=== PATIENT | male | born 1980 | race Two or more races ===

== ENCOUNTER 2024-09-13 04:19 | Inpatient (IN) | payer MEDICAID, OTHER, SELFPAY ==
[2024-09-13] VITALS (10 sets, daily range): BP systolic 113–142; BP diastolic 73–88; PULSE 57–128; RESP 18–24; TEMP 98–102.8; O2SAT 94–98
[~2024-09-13] VITALS: Ht 185.4 cm; Wt 110.3 kg
--- NOTE | 2024-09-13 04:36 | ED.PDOC ---
General HPI Comments 43-year-old male came to ER due to flank pains. Patient currently being treated for UTI. Today is the last day of his Bactrim medication. Patient states he still does not feel any better. Still with fever, chills, nausea, back pains, bilateral flank pains, and upper abdominal pain. He denies any dysuria or gross hematuria Chief Complaint: Flank pain Time Seen by MD: 04:35 Reviewed notes: Nurses Notes Allergies: Coded Allergies: NO KNOWN ALLERGIES (Unverified , 09/13/24) Information Source: Patient Mode of Arrival: Ambulatory Severity: Moderate Inability to void: Mild Timing: Days Duration: Since onset Has not urinated for: Minutes Prehospital treatment: None Onset: Spontaneous Symptoms: Other (Flank pain) History of: UTI Location: Abdomen, (R) Flank, (L)Flank, Other (Back) associated signs and symptoms: Fever, Abdominal Pain, Nausea, Vomiting, Flank Pain, Back Pain Past Medical History PAST MEDICAL HISTORY: UTI'S Surgical History: Denies all surgeries Family History Family History: Reviewed,noncontributory to illness Social History Smoker: Non-Smoker Alcohol: Denies ETOH Use Drugs: Denies Drug Use Lives In: Home Constitutional: reports: fever; denies: chills, diaphoresis, fatigue, malaise, sweats, weakness, others EENTM: denies: blurred vision, double vision, ear bleeding, ear discharge, ear drainage, ear pain, ear ringing, eye pain, eye redness, hearing loss, mouth pain, mouth swelling, nasal discharge, nose bleeding, nose congestion, nose pain, photophobia, tearing, throat pain, throat swelling, voice changes, others Respiratory: denies: cough, hemoptysis, orthopnea, SOB at rest, shortness of breath, SOB with excertion, stridor, wheezing, others Cardiovascular: denies: chest pain, dizzy spells, diaphoresis, Dyspnea on exertion, edema, irregular heart beat, left arm pain, lightheadedness, palpitations, PND, syncope, others Gastrointestinal: reports: abdominal pain, nausea, vomiting; denies: abdomen distended, blood streaked bowels, constipated, diarrhea, dysphagia, difficulty swallowing, hematemesis, melena, poor appetite, poor fluid intake, rectal bleeding, rectal pain, others Genitourinary: reports: flank pain; denies: burning, dysuria, frequency, hematuria, incontinence, penile discharge, penile sore, pain, testicle pain, testicle swelling, urgency, others Neurological: denies: dizziness, fainting, headache, left sided numbness, left sided weakness, numbness, paresthesia, pre-existing deficit, right sided numbness, right sided weakness, seizure, speech problems, tingling, tremors, weakness, others Musculoskeletal: reports: back pain; denies: gout, joint pain, joint swelling, muscle pain, muscle stiffness, neck pain, others Integumetry: denies: bruises, change in color, change in hair/nails, dryness, laceration, lesions, lumps, rash, wounds, others Allergic/Immunocompromised: denies: Difficulty Healing, Frequent Infections, Hives, Itching, others Hematologic/Lymphatic: denies: anemia, blood clots, easy bleeding, easy bruising, swollen glands, others Endocrine: denies: excessive hunger, excessive sweating, excessive thirst, excessive urination, flushing, intolerance to cold, intolerance to heat, unexplained weight gain, unexplained weight loss, others Psychiatric: denies: anxiety, bipolar disorder, depression, hopeless, panic disorder, schizophrenia, sleepless, suicidal, others Physical Exam General Appearance: No Apparent Distress, Normal HEENT: Normal ENT Inspection, Pharynx Normal, TMs Normal Neck: Full Range of Motion, Non-Tender, Normal, Normal Inspection Respiratory: Chest Non-Tender, Lungs Clear, No Accessory Muscle Use, No Respiratory Distress, Normal Breath Sounds Cardiovascular: No Edema, No JVD, No Murmur, No Gallop, Normal Peripheral Pulses, Regular Rate/Rhythm Breast Exam: Deferred Gastrointestinal: No Organomegaly, Non Tender, No Pulsatile Mass, Normal Bowel Sounds, Soft Genitalia: Deferred Pelvic: Deferred Rectal: Deferred Extremities: No calf tenderness, Normal capillary refill, Normal inspection, Normal range of motion, Non-tender, No pedal edema Musculoskeletal : Apperance: Normal Neurologic: Alert, science specialist II-XII nml as Tested, No Motor Deficits, Normal Affect, Normal Mood, No Sensory Deficits Cerebellar Function: Normal Reflexes: Normal Skin: Dry, Normal Color, Warm Lymphatic: No Adenopathy Was a procedure done? Was a procedure done?: No Differential Diagnosis Kidney stone (Female): N/A Kidney stone (Male): Renal failure, Strain, Urinary obstruction, Urolithiasis, Renal infarction, Urinary tract infection Urinary Problem (Male): Plelonephritis, Urethritis, Urinary Retention, Uro lithiasis, UTI X-Ray, Labs, Meds, VS Vital Signs Date Time Temp Pulse Resp B/P (MAP) Pulse Ox O2 Delivery O2 Flow Rate FiO2 09/13/24 05:29 99.7 09/13/24 04:57 99.2 09/13/24 04:50 99.9 104 18 132/79 (96) 99 99.9 09/13/24 04:50 104 18 98 Room Air* 0 21 09/13/24 04:25 98.5 119 20 116/82 (93) 98 Lab Test 09/13/24 04:40 Range/Units White Blood Count 18.6 H 4.4-10.8 10^3/uL Red Blood Count 4.90 4.5-5.90 10^6/uL Hemoglobin 14.4 13.5-17.5 g/dL Hematocrit 42.2 41.0-53.0 % Mean Corpuscular Volume 86.1 80.0-100.0 fL Mean Corpuscular Hemoglobin 29.4 28.0-32.0 pg Mean Corpuscular Hemoglobin Concent 34.2 32.0-36.0 g/dL Red Cell Distribution Width 12.2 11.8-14.3 % Platelet Count 337 140-450 10^3/uL Mean Platelet Volume 8.0 6.9-10.8 fL Neutrophils (%) (Auto) 72.7 37.0-80.0 % Lymphocytes (%) (Auto) 14.7 10.0-50.0 % Monocytes (%) (Auto) 12.1 H 0.0-12.0 % Eosinophils (%) (Auto) 0.1 0.0-7.0 % Basophils (%) (Auto) 0.4 0.0-2.0 % Neutrophils # (Auto) 13.6 H 1.6-8.6 10 ^3/uL Lymphocytes # (Auto) 2.7 0.4-5.4 10 ^3/uL Monocytes # (Auto) 2.2 H 0-1.3 10 ^3/uL Eosinophils # (Auto) 0 0-0.8 10 ^3/uL Basophils # (Auto) 0.1 0-0.2 10 ^3/uL Nucleated Red Blood Cells 0.0 % Sodium Level 131 L 136-145 mmol/L Potassium Level 4.0 3.5-5.1 mmol/L Chloride Level 101 98-107 mmol/L Carbon Dioxide Level 21 20-31 mmol/L Anion Gap 9 5-15 Blood Urea Nitrogen 9 9-23 mg/dL Creatinine 1.23 0.700-1.30 mg/dL Glomerular Filtration Rate Calc 74 >90 mL/min BUN/Creatinine Ratio 7.3 L 10.0-20.0 Serum Glucose 308 H 74-106 mg/dL Lactic Acid Level 1.1 0.4-2.0 mmol/L Calcium Level 9.9 8.7-10.4 mg/dL Total Bilirubin 1.1 H 0.2-1.0 mg/dL Aspartate Amino Transferase (AST) 21 13-40 U/L Alanine Aminotransferase (ALT) 26 7-40 U/L Alkaline Phosphatase 82 46-116 U/L Total Protein 8.0 5.7-8.2 g/dL Albumin 4.6 3.2-4.8 g/dL Lipase 42 12-53 U/L Current Medications Medications (Trade) Dose Ordered Sig/Rosalina Route Start Time Stop Time Status Last Admin Sodium Chloride 1,000 ml @ 1,000 mls/hr Q1H ONCE IVB 09/13/24 04:45 09/13/24 05:44 DC 09/13/24 05:00 Ceftriaxone Sodium/Dextrose 50 ml @ 50 mls/hr ONCE ONCE IV 09/13/24 04:45 09/13/24 05:44 DC 09/13/24 05:00 Acetaminophen (Tylenol Tablet) 1,000 mg ONCE ONCE PO 09/13/24 04:45 09/13/24 04:46 DC 09/13/24 04:57 Exam: CT CT AB PEL WO CON-NO ORAL OR IV History: bilateral flank pain Comparison Study: None Technique: Multidetector spiral CT of the abdomen was performed from lung bases to pubic symphysis. Imaging was performed without IV contrast. Axial, coronal and sagittal multiplanar reformats were obtained from the axial data set by the technologist. Radiation Dose : 1. Abdomen/Pelvis: CTDIvol 21 mGy, DLP 1323 mGy*cm. Findings: Evaluation of solid organs is limited due to lack of intravenous contrast use. Lung Bases: No acute or significant lung base finding. Normal heart size. No pleural or pericardial effusion. Liver: Mild hepatic steatosis. Hepatomegaly. Gallbladder and Biliary Tree: Unremarkable Spleen: Unremarkable Pancreas: The pancreas is grossly normal in appearance. Adrenal Glands: Unremarkable Kidneys: Left kidney is unremarkable. Mild inflammatory changes around the right kidney. Bladder: Grossly unremarkable for degree of distention. Bowel: The stomach is grossly normal in appearance. Moderate volume colonic stool. The appendix is not visualized; however, no secondary findings of acute appendicitis identified. Ascites: Absent Lymphadenopathy: No mesenteric, retroperitoneal or periportal lymphadenopathy. Abdominal Wall and Mesentery: Unremarkable. Vasculature: The visualized abdominal aorta is normal in size and caliber. Fatoumata luation of abdominal and pelvic vessels is limited due to lack of intravenous contrast. Pelvic Organs: Unremarkable Musculoskeletal: No aggressive focal bony lesions, acute fractures or dislocation. IMPRESSION: No hydronephrosis. Mild inflammatory changes surrounding the right kidney possibly representing reactive inflammatory change related to recently passed right renal stone. Time of 1ST Reevaluation: 04:32 Reevaluation 1ST: Unchanged Time of 2ND Reevaluation: 05:48 Reevaluation 2ND: Unchanged Patient Education/Counseling: Diagnosis, Treatment Family Education/Counseling: No Family Present Departure 1 Departure Time of Disposition: 05:48 Impression: Primary Impression: UTI (urinary tract infection) Additional Impression: Pyelonephritis Disposition: ADMITTED INPATIENT Condition: Guarded Critical Care Note Critical Care Time?: No Stability Stability form required: No Heart Score Heart Score: Heart Score Response (Comments) Value History N/A 0 EKG N/A 0 Age N/A 0 Risk Factors N/A 0 Troponin N/A 0 Total 0 I personally scribed for ANTHONY FIELDS MD ([email or web address]) on 09/13/24 at 04:36. Electronically submitted by Ronaldo Alcala ([email or web address]). I personally scribed for ANTHONY FIELDS MD ([email or web address]) on 09/13/24 at 05:28. Electronically submitted by Ronaldo Alcala ([email or web address]). ANTHONY FIELDS MD Sep 13, 2024 04:36
[2024-09-13] MEDS: ACETAMINOPHEN 325 MG TAB PO ONE (04:57)
[2024-09-13] MEDS: cefTRIAXone 2GM/50ML D5W 50 ML IV ONE (05:00)
[2024-09-13] MEDS: SODIUM CHLORIDE 0.9% 1,000 ML IVB ONE (05:00)
--- NOTE | 2024-09-13 05:13 | DVH ---
Exam: CT CT AB PEL WO CON-NO ORAL OR IV History: bilateral flank pain Comparison Study: None Technique: Multidetector spiral CT of the abdomen was performed from lung bases to pubic symphysis. Imaging was performed without IV contrast. Axial, coronal and sagittal multiplanar reformats were ob tained from the axial data set by the technologist. Radiation Dose : 1. Abdomen/Pelvis: CTDIvol 21 mGy, DLP 1323 mGy*cm. Findings: Evaluation of solid organs is limited due to lack of intravenous contrast use. Lung Bases: No acute or significant lung base finding. Normal heart size. No pleural or pericardial effusion. Liver: Mild hepatic steatosis. Hepatomegaly. Gallbladder and Biliary Tree: Unremarkable Spleen: Unremarkable Pancreas: The pancreas is grossly normal in appearance. Adrenal Glands: Unremarkable Kidneys: Left kidney is unremarkable. Mild inflammatory changes around the right kidney. Bladder: Grossly unremarkable for degree of distention. Bowel: The stomach is grossly normal in appearance. Moderate volume colonic stool. The appendix is n ot visualized; however, no secondary findings of acute appendicitis identified. Ascites: Absent Lymphadenopathy: No mesenteric, retroperitoneal or periportal lymphadenopathy. Abdominal Wall and Mesentery: Unremarkable. Vasculature: The visualized abdominal aorta is normal in size and caliber. Evaluation of abdominal a nd pelvic vessels is limited due to lack of intravenous contrast. Pelvic Organs: Unremarkable Musculoskeletal: No aggressive focal bony lesions, acute fractures or dislocation. IMPRESSION: No hydronephrosis. Mild inflammatory changes surrounding the right kidney possibly representing reactive inflammatory ch shea related to recently passed right renal stone. Otherwise, no acute findings. Radiation optimization: All CT scans at this facility use at least one of these dose optimization moreno hniques: automated exposure control mA and/or kV adjustment per patient size (includes targeted exam s where dose is matched to clinical indication) or iterative reconstruction.
[2024-09-13 05:14] LABS: Basophils # (auto) 0.1 10 ^3/uL (0-0.2); Basophils % (auto) 0.4 % (0.0-2.0); Eosinophils # (auto) 0 10 ^3/uL (0-0.8); Eosinophils % (auto) 0.1 % (0.0-7.0); Hematocrit 42.2 % (41.0-53.0); Hemoglobin 14.4 g/dL (13.5-17.5); Lymphocytes # (auto) 2.7 10 ^3/uL (0.4-5.4); Lymphocytes % (auto) 14.7 % (10.0-50.0); Mean Corpuscular Hemoglobin 29.4 pg (28.0-32.0); Mean Corpuscular Hgb Conc. 34.2 g/dL (32.0-36.0); Mean Corpuscular Volume 86.1 fL (80.0-100.0); Monocytes # (auto) 2.2 10 ^3/uL (0-1.3); Monocytes % (auto) 12.1 % (0.0-12.0); Neutrophils # (auto) 13.6 10 ^3/uL (1.6-8.6); Neutrophils % (auto) 72.7 % (37.0-80.0); Platelet Count (auto) 337 10^3/uL (140-450); Red Cell Distribution Width 12.2 % (11.8-14.3); White Blood Cell 18.6 10^3/uL (4.4-10.8)
[2024-09-13 05:27] LABS: Alanine Aminotransferase 26 U/L (7-40); Albumin 4.6 g/dL (3.2-4.8); Alkaline Phosphatase 82 U/L (46-116); Anion Gap 9 (5-15); Aspartate Aminotransferase 21 U/L (13-40); BUN/Creatinine Ratio 7.3 (10.0-20.0); Bilirubin, Total 1.1 mg/dL (0.2-1.0); Blood Urea Nitrogen 9 mg/dL (9-23); Calcium 9.9 mg/dL (8.7-10.4); Carbon Dioxide 21 mmol/L (20-31); Chloride 101 mmol/L (98-107); Lipase 42 U/L (12-53)
[2024-09-13 05:33] LABS: Sodium 131 mmol/L (136-145)
[2024-09-13 05:34] LABS: Glucose 308 mg/dL (74-106)
[2024-09-13] MEDS ORDERED: ONDANSETRON HCL 4 MG/2 ML VIAL IV PRN ×2 (06:30→18:45)
[2024-09-13] MEDS ORDERED: DEXTROSE (50%) 50ML SYRG IV PRN ×2 (06:30→18:45)
[2024-09-13] MEDS ORDERED: MORPHINE SULFATE INJ 2 MG/ml SYRG IV PRN ×2 (06:30→18:45)
[2024-09-13] MEDS: ACCU-CHEK COMFORT CURVE STRIP VI SCH ×2 (07:00→21:50)
--- NOTE | 2024-09-13 07:06 | DVHHP2 ---
History of Present Illness Reason for Visit: Abdominal pain and flank pain History of Present Illness Isiah Park is a 43-year-old male with no past medical history who presents to the ED today for abdominal and flank pain x2 days. Patient reports that on Monday he came over to the urgent care at [facility] was prescribed antibiotics for a UTI had taken almost all the antibiotics except for 1 that was due for today. Patient reports that he came in to the ED because his pain got progressively worse also his noticed that there were specks of blood in his urine that started yesterday. Patient also reports that 05/28 that was pressure- like and constant. Patient reports that he developed fever, chills, nausea, back pain, flank pain, and abdominal pain. Patient states that the alleviating factors are rest and fluids. Patient denies any chest pain, shortness of breath, lightheadedness, headache, dizziness, vomiting, and diarrhea. Patient also reports that he has no medical history, no surgical history, patient denies illicit drug use, and states he smokes half a pack of cigarettes per day and drinks beers occasionally. Past Surgical History: None Family History: DM, Other (Mom end-stage renal disease and renal transplant single) Smoke: <1 pack per day ALCOHOL: occassional Drugs: None Lives: with Family Domestic Violence: Neg Review of Systems Constitutional: Yes: Fever, Chills; No: Sweats, Weakness, Malaise, Other Eyes: No: Pain, Vision change, Conjunctivae inflammation, Eyelid inflammation, Other, Redness ENT: No: Ear pain, Ear discharge, Nose pain, Nose discharge, Nose congestion, Mouth pain, Mouth swelling, Throat pain, Throat swelling, Other Respiratory: No: Cough, Dry, Shortness of breath, SOB with excertion, Wheezing, Hemoptysis, Pleuritic Pain, Sputum, Wheezing, Other Cardiovascular: No: Chest Pain, Palpitations, Orthopnea, Paroxysmal Noc. Dyspnea, Edema, Lt Headedness, Other Gastrointestinal: Nausea, Abdominal Pain; No: Vomiting, Diarrhea, Constipation, Melena, Hematochezia, Other Genitourinary: No Dysuria, No Frequency, No Incontinence; Hematuria; No Retention, No Other Musculoskeletal: other (Flank pain), back pain; No: neck pain, shoulder pain, arm pain, hand pain, leg pain, foot pain Skin: No: Rash, Lesions, Jaundice, Bruising, Other Neurological: No: Weakness, Numbness, Incoordination, Change in speech, Confusion, Seizures, Other Allergies: Coded Allergies: NO KNOWN ALLERGIES (Unverified , 09/13/24) Exam Vital Signs Vital Signs Date Time Temp Pulse Resp B/P (MAP) Pulse Ox O2 Delivery O2 Flow Rate FiO2 09/13/24 06:34 Room Air* 0 21 09/13/24 06:31 98.9 106 22 122/81 (95) 97 98.9 General Appearance: Alert, Oriented X3, Cooperative, No acute distress HEENT: Atraumatic, PERRLA, EOMI, Mucous membr. moist/pink Respiratory: Clear to auscultation, Normal air movement Cardiovascular: Normal S1, Normal S2, No murmurs Abdominal: Soft, No hepatospenomegaly, No masses Extremities: No clubbing, No cyanosis, No edema, Normal pulses, No tenderness/swelling Skin: No rashes, No breakdown, No significant lesion Neuro: Normal gait, Normal speech, Strength at 5/5 X4 ext, Normal tone, Sensation intact Psych/Mental Status: Mental status NL, Mood NL Labs/Xrays Labs Test 09/13/24 04:40 Range/Units White Blood Count 18.6 H 4.4-10.8 10^3/uL Red Blood Count 4.90 4.5-5.90 10^6/uL Hemoglobin 14.4 13.5-17.5 g/dL Hematocrit 42.2 41.0-53.0 % Mean Corpuscular Volume 86.1 80.0-100.0 fL Mean Corpuscular Hemoglobin 29.4 28.0-32.0 pg Mean Corpuscular Hemoglobin Concent 34.2 32.0-36.0 g/dL Red Cell Distribution Width 12.2 11.8-14.3 % Platelet Count 337 140-450 10^3/uL Mean Platelet Volume 8.0 6.9-10.8 fL Neutrophils (%) (Auto) 72.7 37.0-80.0 % Lymphocytes (%) (Auto) 14.7 10.0-50.0 % Monocytes (%) (Auto) 12.1 H 0.0-12.0 % Eosinophils (%) (Auto) 0.1 0.0-7.0 % Basophils (%) (Auto) 0.4 0.0-2.0 % Neutrophils # (Auto) 13.6 H 1.6-8.6 10 ^3/uL Lymphocytes # (Auto) 2.7 0.4-5.4 10 ^3/uL Monocytes # (Auto) 2.2 H 0-1.3 10 ^3/uL Eosinophils # (Auto) 0 0-0.8 10 ^3/uL Basophils # (Auto) 0.1 0-0.2 10 ^3/uL Nucleated Red Blood Cells 0.0 % Sodium Level 131 L 136-145 mmol/L Potassium Level 4.0 3.5-5.1 mmol/L Chloride Level 101 98-107 mmol/L Carbon Dioxide Level 21 20-31 mmol/L Anion Gap 9 5-15 Blood Urea Nitrogen 9 9-23 mg/dL Creatinine 1.23 0.700-1.30 mg/dL Glomerular Filtration Rate Calc 74 >90 mL/min BUN/Creatinine Ratio 7.3 L 10.0-20.0 Serum Glucose 308 H 74-106 mg/dL Lactic Acid Level 1.1 0.4-2.0 mmol/L Calcium Level 9.9 8.7-10.4 mg/dL Total Bilirubin 1.1 H 0.2-1.0 mg/dL Aspartate Amino Transferase (AST) 21 13-40 U/L Alanine Aminotransferase (ALT) 26 7-40 U/L Alkaline Phosphatase 82 46-116 U/L Total Protein 8.0 5.7-8.2 g/dL Albumin 4.6 3.2-4.8 g/dL Lipase 42 12-53 U/L Exam: CT CT AB PEL WO CON-NO ORAL OR IV History: bilateral flank pain Comparison Study: None Technique: Multidetector spiral CT of the abdomen was performed from lung bases to pubic symphysis. Imaging was performed without IV contrast. Axial, coronal and sagittal multiplanar reformats were obtained from the axial data set by the technologist. Radiation Dose : 1. Abdomen/Pelvis: CTDIvol 21 mGy, DLP 1323 mGy*cm. Findings: Evaluation of solid organs is limited due to lack of intravenous contrast use. Lung Bases: No acute or significant lung base finding. Normal heart size. No pleural or pericardial effusion. Liver: Mild hepatic steatosis. Hepatomegaly. Gallbladder and Biliary Tree: Unremarkable Spleen: Unremarkable Pancreas: The pancreas is grossly normal in appearance. Adrenal Glands: Unremarkable Kidneys: Left kidney is unremarkable. Mild inflammatory changes around the right kidney. Bladder: Grossly unremarkable for degree of distention. Bowel: The stomach is grossly normal in appearance. Moderate volume colonic stool. The appendix is not visualized; however, no secondary findings of acute appendicitis identified. Ascites: Absent Lymphadenopathy: No mesenteric, retroperitoneal or periportal lymphadenopathy. Abdominal Wall and Mesentery: Unremarkable. Vasculature: The visualized abdominal aorta is normal in size and caliber. Evaluation of abdominal and pelvic vessels is limited due to lack of intravenous contrast. Pelvic Organs: Unremarkable Musculoskeletal: No aggressive focal bony lesions, acute fractures or dislo cation. IMPRESSION: No hydronephrosis. Mild inflammatory changes surrounding the right kidney possibly representing reactive inflammatory change related to recently passed right renal stone. Otherwise, no acute findings. Assessment/Plan Assessment/Plan Assessment/Plan: Intractable flank pain likely secondary to acute pyelonephritis Leukocytosis likely secondary to acute pyelonephritis Hyponatremia MILLIE on CKD ct a/p noted labs pain management antiemetics ua am labs Lactic acid Blood cultures Lipase IV antibiotics Hyperglycemia Hemoglobin A1c ISS and Accu-Cheks FEN/PPX diet IVf DVT prophylaxis not indicated patient ambulating PUD prophylaxis not indicated no history of GERD or GI bleed Admit to med surg Patient states he doesn't take any home medications Discussed plan of care with patient, and nurse Plan discussed with: Patient, Spouse My Orders Orders - ALVAREZ GIL 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 Procedure Category Date Status Time Ceftriaxone Ivpb PHA 09/13/24 Verified Rocephin 09:00 Hemoglobin A1c LAB 09/13/24 Verified 06:30 Glucose Blood PHA 09/13/24 Verified (Accu-Chek Comfort 07:00 Mild Sliding Scale PHA 09/13/24 Verified 07:00 Dextrose 50% Syringe PHA 09/13/24 Verified 06:30 Admit ADMIT 09/13/24 Verified 06:30 Allergies SEKOU 09/13/24 Verified 06:30 Code Status CODE 09/13/24 Verified 06:30 Renal DIET 09/13/24 Verified Standard(2gna,3gk,Lopho) Breakfast 0.9% Ns 1000 Ml PHA 09/13/24 Verified 06:30 Hydrocodone-Acet PHA 09/13/24 Verified 5/325mg Tab ([place] 06:30 Ondansetron Hcl PHA 09/13/24 Verified (Zofran) 06:30 Complete Blood Count LAB 09/14/24 Verified 04:00 Comprehensive LAB 09/14/24 Verified Metabolic Panel 04:00 Acetaminophen Tablet PHA 09/13/24 Verified (Tylenol Tablet) 06:30 Morphine Sulfate PHA 09/13/24 Verified Injection 06:30 Date of Service: Sep 13, 2024 Billing Provider: ALVAREZ GIL Common Visit Codes: 76902-[id number] INP/OBS CARE (HIGH) ALVAREZ GIL Sep 13, 2024 07:06
[2024-09-13] MEDS: SODIUM CHLORIDE 0.9% 1,000 ML IV SCH ×2 (07:14→19:02)
[2024-09-13] MEDS: InsuLIN REG 1unit/0.01ml Soln (100units/ml) SC SCH ×2 (07:26→21:49)
[2024-09-13 09:56] LABS: Urine Bacteria FEW /hpf (None Seen); Urine Blood TRACE /uL (Negative); Urine Clarity Ex.Turbid (Clear); Urine Color DARK YELLOW (Yellow); Urine Mucus FEW (None Seen); Urine Protein, UAD 1+ (Negative); Urine Squamous Epithelial Cell None Seen /hpf (<5); Urine Urobilinogen Normal (Negative); Urine WBC 1158 /hpf (0 - 3); Urine WBC Clumps PRESENT /hpf (None Seen); Urine pH 5.5 (5.0-9.0)
[2024-09-13] MEDS: ACETAMINOPHEN 325 MG TAB PO PRN (12:24)
[2024-09-13] MEDS: HYDROcodone-ACET 5/325MG TAB PO PRN ×2 (16:24→20:44)
[2024-09-13] MEDS: metFORMIN HYDROCHLORIDE 500 MG TAB PO SCH (16:25)
[2024-09-13] MEDS ORDERED: ALBUTEROL SULF 2.5 MG/0.5ML(0.5%) NEB SOLN NEB PRN (18:45)
[2024-09-13] MEDS ORDERED: IPRATROPIUM BROM 0.5 MG/2.5ML INH SOL NEB PRN (18:45)
--- NOTE | 2024-09-13 18:47 | DVHPN2 ---
Subjective Patient reports having worsening fever, back pain, elevated heart rate. Patient also reports having epigastric pain with radiation to his back. Reviewed: Care Plan, H&P, Labs, Medications Changes from previous H/P or p: No Changes General: Per HPI Eyes: No Pain, No Vision change, No Conjunctivae inflammation, No Eyelid inflammation, No Other, No Redness ENT: No Ear pain, No Ear discharge, No Nose pain, No Nose discharge, No Nose congestion, No Mouth pain, No Mouth swelling, No Throat pain, No Throat swelling, No Other Cardiovascular: No Chest Pain, No Palpitations, No Orthopnea, No Paroxysmal Noc. Dyspnea, No Edema, No Lt Headedness, No Other Respiratory: No Cough, No Dry, No Shortness of breath, No SOB with excertion, No Wheezing, No Hemoptysis, No Pleuritic Pain, No Sputum, No Other Gastrointestinal: Nausea; No Vomiting; Abdominal Pain; No Diarrhea, No Constipation, No Melena, No Hematochezia, No Other Genitourinary: No Dysuria, No Frequency, No Incontinence; Hematuria; No Retention, No Other Musculoskeletal: other (Flank pain); No neck pain, No shoulder pain, No arm pain; back pain; No hand pain, No leg pain, No foot pain Skin: No Rash, No Lesions, No Jaundice, No Bruising, No Other Objective Vitals Vital Signs Date Time Temp Pulse Resp B/P (MAP) Pulse Ox O2 Delivery O2 Flow Rate FiO2 09/13/24 17:01 102.8 114 18 113/85 (94) 97 102.8 09/13/24 11:29 Room Air* 0 21 Intake/Output Intake and Output 09/13/24 07:00 Intake Total 1050 ml Balance 1050 ml IV Total 1050 ml General Appearance: Alert, Oriented X3, Cooperative, moderate distress HEENT: Atraumatic, PERRLA Lungs: Clear to auscultation, Normal air movement Cardiovascular: Normal S1, Normal S2 Abdomen: Normal bowel sounds, Soft, No tenderness Musculoskeletal: Normal sensory function, Normal motor function Neuro: Normal gait, Normal speech Psych/Mental Status: Mental status NL, Mood NL Medications Current Medications Medications Dose Ordered Sig/Rosalina Route Start Time Stop Time Status Last Admin Dose Admin Ceftriaxone Sodium 50 ml @ 100 mls/hr DAILY@0500 IV 09/14/24 05:00 Diagnostic Test (Pha) 1 strip ACHS 09/13/24 07:00 09/13/24 09:44 1 STRIP Insulin Human Regular ACHS SC 09/13/24 07:00 09/13/24 09:44 4 UNITS Dextrose 50 ml UD PRN IV 09/13/24 06:30 Sodium Chloride 1,000 ml @ 70 mls/hr [id number] IV 09/13/24 06:30 09/13/24 07:14 70 MLS/HR Acetaminophen/ Hydrocodone Bitart 1 tab Q4HP PRN PO 09/13/24 06:30 09/13/24 16:24 1 TAB Ondansetron HCl 4 mg Q4HP PRN IV 09/13/24 06:30 Acetaminophen 650 mg Q6HP PRN PO 09/13/24 06:30 09/13/24 12:24 650 MG Morphine Sulfate 2 mg Q4HPRN PRN IV 09/13/24 06:30 Metformin HCl 500 mg BIDWM PO 09/13/24 18:00 09/13/24 16:25 500 MG Laboratory Results Laboratory Tests 09/13/24 04:40 Chemistry Test 09/13/24 04:40 Albumin 4.6 g/dL (3.2-4.8) Calcium Level 9.9 mg/dL (8.7-10.4) Total Protein 8.0 g/dL (5.7-8.2) Lipid panel Test 09/13/24 04:40 Lipase 42 U/L (12-53) LFT Test 09/13/24 04:40 Alanine Aminotransferase (ALT) 26 U/L (7-40) Alkaline Phosphatase 82 U/L (46-116) Aspartate Amino Transferase (AST) 21 U/L (13-40) Total Bilirubin 1.1 mg/dL (0.2-1.0) H HgA1c, TSH Test 09/13/24 04:40 Hemoglobin A1c 10.0 % A1C (<5.7) H Urinalysis Test 09/13/24 04:29 Urine Color Dark yellow (Yellow) Urine Clarity Ex.turbid (Clear) Urine pH 5.5 (5.0-9.0) Urine Specific [place] 1.020 (1.001-1.035) Urine Protein 1+ (Negative) H Urine Ketones Trace (Negative) Urine Blood Trace /uL (Negative) H Urine Nitrite 1+ (Negative) H Urine Bilirubin Negative (Negative) Urine Urobilinogen Normal mg/dL (Negative) Urine Leukocyte Esterase 3+ /uL (Negative) Urine RBC 5 /hpf (0 - 3) Urine WBC 1158 /hpf (0 - 3) Urine WBC Clumps Present /hpf (None Seen) Urine Squamous Epithelial Cells None seen /hpf (<5) Urine Bacteria Few /hpf (None Seen) H Urine Mucus Few (None Seen) Urine Glucose 4+ mg/dL (Normal) H Labs and/or images reviewed: Labs reviewed by me, Image(s) reviewed by me Assessment/Plan Assessment/Plan Impression: -sepsis -complicated cystitis -diabetes mellitus -obesity -rule out influenza, COVID-19 -rule out cholelithiasis/cholecystitis Plan: -patient became severely febrile and tachycardic for which critical care consultation/assessment was placed. I myself, spoke with the patient regarding his acute symptoms. Patient reports that he feels more febrile, with acute epigastric pain that radiates to his back. Patient also reports rigor type symptoms. -change antibiotic therapy to Zosyn -check for influenza and COVID-19 -chest x-ray -check ESR, CRP -change insulin sliding scale to moderate -blood and urine cultures -repeat labs in a.m. -gallbladder ultrasound Critical care time spent with patient discussing and formulating plan of care: 40 minutes. This does not include time spent performing procedures. This medical document was created using an electronic medical record system with [employer] dictation system. Although this document has been carefully reviewed, there may still be some phonetic and typographical errors. These areas are purely typographical due to imperfections of the software programs, and do not reflect any compromise in the patient's medical care. Plan discussed with: Patient, Spouse, Other (RN) My Orders Orders - SILVER PAN WO[employer]EL BACK LINER Procedure Category Date Status Time Consistent DIET 09/13/24 [facility]Diabetes Lunch Metformin PHA 09/13/24 In Process Hydrochloride 18:00 0.9% Ns 1000 Ml PHA 09/13/24 Verified 18:45 Gallbladder US 09/13/24 Verified 18:39 Covid19 Antigen Deirdre LAB 09/13/24 Verified Rapid Influenza A&B LAB 09/13/24 Verified 18:39 Erythrocyte LAB 09/13/24 Verified Sedimentation Rate 18:39 C-Reactive Protein LAB 09/13/24 Verified 18:39 Urine Bacterial ROSE 09/13/24 Verified Culture 18:39 Zosyn Extended PHA 09/13/24 Verified Infusion 22:00 Glucose Blood PHA 09/13/24 Verified (Accu-Chek Comfort 22:00 Bedtime Insulin Scale PHA 09/13/24 Verified 22:00 Moderate Insulin Ss PHA 09/14/24 Verified 07:00 Dextrose 50% Syringe PHA 09/13/24 Verified 18:45 Chest Xray 1 View XY 09/13/24 Verified 18:39 Date of Service: Sep 13, 2024 Billing Provider: SILVER PAN NP Common Visit Codes: [id number] CARE 30-74 MIN SILVER PAN NP Sep 13, 2024 18:47
[2024-09-13 19:57] LABS: Erythrocyte Sedimentation Rate 55 mm/hr (0-20)
[2024-09-13] MEDS: PIPERACILLIN-TAZOB 3.375GM 100 ML IV SCH (21:41)
[2024-09-13] MEDS: ACETAMINOPHEN 500 MG TAB or CAP PO PRN (21:53)
[2024-09-14] VITALS (10 sets, daily range): BP systolic 116–145; BP diastolic 75–90; PULSE 104–115; RESP 17–20; TEMP 99.7–101.5; O2SAT 93–96
[2024-09-14 01:46] LABS: Rapid Influenza A Negative (Negative); Rapid Influenza B Negative (Negative)
[2024-09-14 01:46] LABS: COVID19 ANTIGEN SOFIA FIA NEGATIVE (NEGATIVE)
[2024-09-14] MEDS ORDERED: cefTRIAXone 1GM/50ML D5W 50 ML IV SCH (05:00)
--- NOTE | 2024-09-14 05:43 | DVH ---
CHEST RADIOGRAPH Indication: pna Technique: Single frontal view of the chest was obtained COMPARISON: None FINDINGS: Lines and Tubes: None Lungs: Mild congestion Pleura: No effusion. No pneumothorax. Cardiomediastinal contours: Unremarkable Bones: Unremarkable IMPRESSION: Mild congestion
[2024-09-14] MEDS: InsuLIN REG 1unit/0.01ml Soln (100units/ml) SC SCH (06:07)
[2024-09-14 07:05] LABS: Basophils # (auto) 0.1 10 ^3/uL (0-0.2); Basophils % (auto) 0.2 % (0.0-2.0); Eosinophils # (auto) 0 10 ^3/uL (0-0.8); Hematocrit 38.7 % (41.0-53.0); Hemoglobin 13.6 g/dL (13.5-17.5); Lymphocytes # (auto) 2.1 10 ^3/uL (0.4-5.4); Lymphocytes % (auto) 9.5 % (10.0-50.0); Mean Corpuscular Hemoglobin 30.1 pg (28.0-32.0); Mean Corpuscular Hgb Conc. 35.2 g/dL (32.0-36.0); Mean Corpuscular Volume 85.5 fL (80.0-100.0); Monocytes % (auto) 8.8 % (0.0-12.0); Neutrophils # (auto) 18.1 10 ^3/uL (1.6-8.6); Neutrophils % (auto) 81.5 % (37.0-80.0); Platelet Count (auto) 302 10^3/uL (140-450); Red Blood Cells 4.53 10^6/uL (4.5-5.90); Red Cell Distribution Width 12.2 % (11.8-14.3); White Blood Cell 22.2 10^3/uL (4.4-10.8)
[2024-09-14 07:29] LABS: Alanine Aminotransferase 22 U/L (7-40); Alkaline Phosphatase 90 U/L (46-116); Anion Gap 10 (5-15); BUN/Creatinine Ratio 9.1 (10.0-20.0); Calcium 9.5 mg/dL (8.7-10.4); Carbon Dioxide 22 mmol/L (20-31)
[2024-09-14 07:30] LABS: Total Protein 7.1 g/dL (5.7-8.2)
--- NOTE | 2024-09-14 08:04 | DVH ---
EXAM: US GALLBLADDER INDICATION: epigastric and upper quadrant pain TECHNIQUE: Multiple real-time sonographic images were obtained of the right upper quadrant. COMPARISON: CT of the abdomen pelvis dated 09/13/2024 FINDINGS: The liver demonstrates increased echotexture without focal mass lesions. The liver measures 17.97 cm. There is hepatopedal color doppler flow in the main portal vein. There is no intrahepatic biliary ductal dilatation. The gallbladder is without evidence of stone or sludge. The gallbladder wall measures 0.2 cm. The common bile duct measures 0.5 cm. There is a negative sonographic Agrawal's sign. The right kidney measures 13.0 cm. The right kidney is normal in contour, size, and shape. The ech ogenicity is normal. There is no hydronephrosis. The pancreas is not well visualized due to overlying bowel gas. Visualized portions of the aorta and inferior vena cava are unremarkable. No evidence of ascites. IMPRESSION: 1. Hepatomegaly and hepatic steatosis. 2. No acute biliary abnormality.
[2024-09-14 08:51] LABS: Aspartate Aminotransferase 12 U/L (13-40); Blood Urea Nitrogen 8 mg/dL (9-23); Chloride 100 mmol/L (98-107); Glucose 211 mg/dL (74-106); Potassium 3.6 mmol/L (3.5-5.1); Sodium 132 mmol/L (136-145)
[2024-09-14] MEDS ORDERED: VANCOMYCIN PER PHARMACY 0 MG IV SCH (12:30)
[2024-09-14] MEDS ORDERED: MEROPENEM 1GM IVPB 50 ML IV SCH (14:00)
--- NOTE | 2024-09-14 14:14 | DVH ---
Exam: CT CT CHEST/AB/PL W CON- IV ONLY History: SEPSIS ETIOLOGY Comparison Study: None available at time of dictation. Contrast: Type of contrast: Omnipaque 300 Contrast injected: 99 mL Contrast wasted: 0 TECHNIQUE: A digital business services representative image was obtained. During the uneventful, intravenous administration of c ontrast material, multislice data acquisition was obtained through the abdomen and pelvis. The data s et was subsequently reconstructed into axial images. Images were reviewed on a work station using a c ombination of axial and multiplanar using a variety of window levels and settings. Radiation Dose Information: CT Dose: CTDI volume is 25.51 mGy. Dose-length product is 1742.25 mGy*cm FINDINGS: Lung Bases: Scarring or linear atelectasis posterior costophrenic angles bilaterally.. No infiltrates or effusions. Normal heart size. No pleural or pericardial effusion. Liver: The liver is normal in size. No focal lesions. Normal hepatic vascular enhancement. CT findin gs consistent with hepatic steatosis Gallbladder and Biliary Tree: Unremarkable Spleen: Unremarkable Pancreas: The pancreas is normal in appearance without focal lesions or abnormal enhancement. Adrenal Glands: Unremarkable Kidneys: Kidneys demonstrate normal symmetric enhancement without focal lesions, calculi or hydroneph rosis. Bladder: Diffuse bladder wall thickening may be secondary to poor urinary distention for infection. Bowel: The stomach is grossly normal in appearance. Small bowel and colon are normal in caliber and d istribution. The appendix is not visualized; however, no secondary findings of acute appendicitis id entified. Ascites: No free fluid or free air. Lymphadenopathy: No mesenteric, retroperitoneal or periportal lymphadenopathy. Abdominal Wall and Mesentery: Unremarkable. Vasculature: The visualized abdominal aorta is normal in size and caliber. Abdominal and pelvic vess els demonstrate normal enhancement. Pelvic Organs: Unremarkable Musculoskeletal: No aggressive focal bony lesions, acute fractures or dislocation. Soft tissues: Unremarkable. IMPRESSION: 1. No acute abnormality in the abdomen or pelvis. 2. No infiltrates or effusions. 3. No free fluid or free air. 4. CT findings suggesting hepatic steatosis. 5. Diffuse bladder wall thickening may be secondary to poor urinary distention or infection. All CT scans at this medical facility are performed using dose modulation techniques as appropriate t o a performed exam including the following: Automated exposure control was utilized; adjustment of th e MA and/or KV according to patient size; and use of iterative reconstruction technique.
--- NOTE | 2024-09-14 14:23 | DVHPN2 ---
Subjective Patient states that his weakness has improved, but continues to have periumbilical pain. Reviewed: Care Plan, H&P, Labs, Medications Changes from previous H/P or p: No Changes General: Per HPI Eyes: No Pain, No Vision change, No Conjunctivae inflammation, No Eyelid inflammation, No Other, No Redness ENT: No Ear pain, No Ear discharge, No Nose pain, No Nose discharge, No Nose congestion, No Mouth pain, No Mouth swelling, No Throat pain, No Throat swelling, No Other Cardiovascular: No Chest Pain, No Palpitations, No Orthopnea, No Paroxysmal Noc. Dyspnea, No Edema, No Lt Headedness, No Other Respiratory: No Cough, No Dry, No Shortness of breath, No SOB with excertion, No Wheezing, No Hemoptysis, No Pleuritic Pain, No Sputum, No Other Gastrointestinal: Nausea; No Vomiting; Abdominal Pain; No Diarrhea, No Constipation, No Melena, No Hematochezia, No Other Genitourinary: No Dysuria, No Frequency, No Incontinence; Hematuria; No Retention, No Other Musculoskeletal: other (Flank pain); No neck pain, No shoulder pain, No arm pain; back pain; No hand pain, No leg pain, No foot pain Skin: No Rash, No Lesions, No Jaundice, No Bruising, No Other Objective Vitals Vital Signs Date Time Temp Pulse Resp B/P (MAP) Pulse Ox O2 Delivery O2 Flow Rate FiO2 09/14/24 13:17 101.5 09/14/24 13:00 108 17 135/85 (102) 95 09/14/24 09:36 Room Air 0.0 09/14/24 09:36 21 Intake/Output Intake and Output 09/14/24 07:00 Intake Total 2035 ml Output Total 1000 ml Balance 1035 ml Intake Oral 1345 ml IV Total 690 ml Output Urine Total 1000 ml Stool Total 0 ml # Voids 9 General Appearance: Alert, Oriented X3, Cooperative, moderate distress HEENT: Atraumatic, PERRLA Lungs: Clear to auscultation, Normal air movement Cardiovascular: Normal S1, Normal S2 Abdomen: Normal bowel sounds, Soft, No tenderness Musculoskeletal: Normal sensory function, Normal motor function Neuro: Normal gait, Normal speech Psych/Mental Status: Mental status NL, Mood NL Medications Current Medications Medications Dose Ordered Sig/Rosalina Route Start Time Stop Time Status Last Admin Dose Admin Sodium Chloride 1,000 ml @ 125 mls/hr Q8H IV 09/13/24 18:45 09/14/24 10:45 125 MLS/HR Diagnostic Test (Pha) 1 strip ACHS 09/13/24 22:00 09/14/24 11:54 1 STRIP Insulin Human Regular HS SC 09/13/24 22:00 09/13/24 21:49 6 UNITS Insulin Human Regular AC SC 09/14/24 07:00 09/14/24 11:54 6 UNITS Dextrose 50 ml UD PRN IV 09/13/24 18:45 Morphine Sulfate 1 mg Q4HPRN PRN IV 09/13/24 18:45 Acetaminophen/ Hydrocodone Bitart 1 tab Q6HPRN PRN PO 09/13/24 18:45 09/13/24 20:44 1 TAB Acetaminophen 500 mg Q8HP PRN PO 09/13/24 18:45 09/14/24 13:17 500 MG Ondansetron HCl 4 mg Q6HP PRN IV 09/13/24 18:45 Albuterol 2.5 mg Q4HPRN PRN NEB 09/13/24 18:45 Ipratropium [place] 0.5 mg Q4HPRN PRN NEB 09/13/24 18:45 Vancomycin HCl 0 ml @ 0 mls/hr UD IV 09/14/24 12:30 UNV Insulin Glargine 15 units HS SC 09/14/24 22:00 UNV Meropenem 50 ml @ 17 mls/hr Q8HR IV 09/14/24 14:00 UNV Laboratory Results Laboratory Tests 09/14/24 05:27 Chemistry Test 09/14/24 05:27 Albumin 4.0 g/dL (3.2-4.8) Calcium Level 9.5 mg/dL (8.7-10.4) Total Protein 7.1 g/dL (5.7-8.2) LFT Test 09/14/24 05:27 Alanine Aminotransferase (ALT) 22 U/L (7-40) Alkaline Phosphatase 90 U/L (46-116) Aspartate Amino Transferase (AST) 12 U/L (13-40) L Total Bilirubin 1.0 mg/dL (0.2-1.0) Urinalysis Test 09/13/24 04:29 Urine Color Dark yellow (Yellow) Urine Clarity Ex.turbid (Clear) Urine pH 5.5 (5.0-9.0) Urine Specific [place] 1.020 (1.001-1.035) Urine Protein 1+ (Negative) H Urine Ketones Trace (Negative) Urine Blood Trace /uL (Negative) H Urine Nitrite 1+ (Negative) H Urine Bilirubin Negative (Negative) Urine Urobilinogen Normal mg/dL (Negative) Urine Leukocyte Esterase 3+ /uL (Negative) Urine RBC 5 /hpf (0 - 3) Urine WBC 1158 /hpf (0 - 3) Urine WBC Clumps Present /hpf (None Seen) Urine Squamous Epithelial Cells None seen /hpf (<5) Urine Bacteria Few /hpf (None Seen) H Urine Mucus Few (None Seen) Urine Glucose 4+ mg/dL (Normal) H Microbiology Microbiology Date/Time Source Procedure Growth Status 09/13/24 04:55 Blood Blood Culture - Preliminary NO GROWTH AFTER 24 HOURS OF INCUBATION. Resulted Labs and/or images reviewed: Labs reviewed by me, Image(s) reviewed by me Assessment/Plan Assessment/Plan Impression: -sepsis -complicated cystitis -diabetes mellitus -obesity -rule out influenza, COVID-19 -rule out cholelithiasis/cholecystitis Plan: Events: Needs to be febrile. White blood cell count continues to increase. Patient was still has abdominal pain. Gallbladder ultrasound negative. Lipase normal. Discussed plan of care with the patient. Patient will have CT with contrast of chest, abdomen, pelvis. Antibiotic therapy will be broaden -change antibiotic therapy to vancomycin and meropenem pending -check for influenza and COVID-19 : Negative -change insulin sliding scale to moderate -blood and urine cultures -repeat labs in a.m. Total time spent with patient discussing and formulating plan of care: 35 minutes. This medical document was created using an electronic medical record system with [employer] dictation system. Although this document has been carefully reviewed, there may still be some phonetic and typographical errors. These areas are purely typographical due to imperfections of the software programs, and do not reflect any compromise in the patient's medical care. Plan discussed with: Patient, Other (RN) My Orders Orders - SILVER PAN NP Procedure Category Date Status Time Sodium Chloride 0.9% PHA 09/13/24 In Process 18:45 Urine Bacterial ROSE 12/27/24 In Process Culture 18:39 Glucose Blood PHA 09/13/24 In Process (Accu-Chek Comfort 22:00 Insulin R (Human) PHA 09/13/24 In Process (Insulin R) 22:00 Insulin R (Human) PHA 09/14/24 In Process (Insulin R) 07:00 Dextrose 50% Syringe PHA 09/13/24 In Process 18:45 Chest Xray 1 View XY 09/13/24 Resulted 18:39 Morphine Sulfate PHA 09/13/24 In Process Injection 18:45 Hydrocodone-Acet PHA 09/13/24 In Process 5/325mg Tab ([place] 18:45 Acetaminophen Tab Or PHA 09/13/24 In Process Cap (Tylenol Tablet 18:45 Ondansetron Hcl PHA 09/13/24 In Process (Zofran) 18:45 Albuterol Medneb PHA 09/13/24 In Process (Ventolin Medneb) 18:45 Ipratropium Medneb PHA 09/13/24 In Process (Atrovent Medneb) 18:45 Gallbladder US 09/14/24 Resulted 08:00 Vancomycin Per PHA 09/14/24 Logged Pharmacy 12:30 Insulin Lantus PHA 09/14/24 Logged (Glargine) (Lantus) 22:00 Meropenem 1gm Ivpb PHA 09/14/24 Logged (Merrem 1gm/ Ns) 14:00 Ct Chest/Ab/Pl W Con- CT 09/14/24 Resulted Iv Only 12:43 Date of Service: Sep 14, 2024 Billing Provider: SILVER PAN NP Common Visit Codes: [id number] INP/OBS CARE(HIGH) SILVER PAN NP Sep 14, 2024 14:23
[2024-09-14] MEDS: VANCOMYCIN 1GM/250ML KIT 250 ML IV SCH (15:02)
[2024-09-14] MEDS: methylPREDNISolone SOD SUCC 40 MG/ML VL IV ONE ×2 (18:33→18:35)
[2024-09-14] MEDS: diphenhdrAMINE HCL 50 MG/1 ML VL IV ONE ×2 (18:33→18:34)
[2024-09-14] MEDS: MEROPENEM 1GM IVPB 50 ML IV SCH (18:34)
[2024-09-14] MEDS: FAMOTIDINE (10MG/ML) 2ML VL IV ONE ×2 (18:34→18:35)
[2024-09-14] MEDS: INSULIN LANTUS (GLARGINE) 1 /0.01ml (100units/ml) SC SCH (21:34)
[2024-09-14] MEDS: VANCOMYCIN 1.25GM/250ML 250 ML IV SCH (23:11)
[2024-09-15] VITALS (11 sets, daily range): BP systolic 114–128; BP diastolic 73–86; PULSE 87–98; RESP 17–20; TEMP 97.6–98; O2SAT 93–98
--- NOTE | 2024-09-15 15:44 | DVHPN2 ---
Subjective Patient was states that his generalized weakness has improved. Fevers have improved. Patient also reports that his abdominal pain is slowly improving. Reviewed: Care Plan, H&P, Labs, Medications Changes from previous H/P or p: Changes General: Per HPI Eyes: No Pain, No Vision change, No Conjunctivae inflammation, No Eyelid inflammation, No Other, No Redness ENT: No Ear pain, No Ear discharge, No Nose pain, No Nose discharge, No Nose congestion, No Mouth pain, No Mouth swelling, No Throat pain, No Throat swelling, No Other Cardiovascular: No Chest Pain, No Palpitations, No Orthopnea, No Paroxysmal Noc. Dyspnea, No Edema, No Lt Headedness, No Other Respiratory: No Cough, No Dry, No Shortness of breath, No SOB with excertion, No Wheezing, No Hemoptysis, No Pleuritic Pain, No Sputum, No Other Gastrointestinal: Nausea; No Vomiting; Abdominal Pain; No Diarrhea, No Constipation, No Melena, No Hematochezia, No Other Genitourinary: No Dysuria, No Frequency, No Incontinence; Hematuria; No Retention, No Other Musculoskeletal: other (Flank pain); No neck pain, No shoulder pain, No arm pain; back pain; No hand pain, No leg pain, No foot pain Skin: No Rash, No Lesions, No Jaundice, No Bruising, No Other Objective Vitals Vital Signs Date Time Temp Pulse Resp B/P (MAP) Pulse Ox O2 Delivery O2 Flow Rate FiO2 09/15/24 12:54 97.6 95 17 115/77 (90) 97 97.6 09/15/24 10:00 Room Air* 0 21 Intake/Output Intake and Output 09/15/24 07:00 Intake Total 5800 ml Output Total 800 ml Balance 5000 ml Intake Oral 4950 ml IV Total 850 ml Output Urine Total 800 ml # Voids 10 # Bowel Movements 2 General Appearance: Alert, Oriented X3, Cooperative, mild distress HEENT: Atraumatic, PERRLA Lungs: Clear to auscultation, Normal air movement Cardiovascular: Normal S1, Normal S2 Abdomen: Normal bowel sounds, Soft, No tenderness Musculoskeletal: Normal sensory function, Normal motor function Neuro: Normal gait, Normal speech Psych/Mental Status: Mental status NL, Mood NL Medications Current Medications Medications Dose Ordered Sig/Rosalina Route Start Time Stop Time Status Last Admin Dose Admin Sodium Chloride 1,000 ml @ 125 mls/hr Q8H IV 09/13/24 18:45 09/15/24 09:24 125 MLS/HR Diagnostic Test (Pha) 1 strip ACHS 09/13/24 22:00 09/15/24 12:47 1 STRIP Insulin Human Regular HS SC 09/13/24 22:00 09/14/24 21:38 4 UNITS Insulin Human Regular AC SC 09/14/24 07:00 09/15/24 12:47 6 UNITS Dextrose 50 ml UD PRN IV 09/13/24 18:45 Morphine Sulfate 1 mg Q4HPRN PRN IV 09/13/24 18:45 Acetaminophen/ Hydrocodone Bitart 1 tab Q6HPRN PRN PO 09/13/24 18:45 09/13/24 20:44 1 TAB Acetaminophen 500 mg Q8HP PRN PO 09/13/24 18:45 09/14/24 13:17 500 MG Ondansetron HCl 4 mg Q6HP PRN IV 09/13/24 18:45 Albuterol 2.5 mg Q4HPRN PRN NEB 09/13/24 18:45 Ipratropium [place] 0.5 mg Q4HPRN PRN NEB 09/13/24 18:45 Insulin Glargine 15 units HS SC 09/14/24 22:00 09/14/24 21:34 15 UNITS Meropenem 50 ml @ 17 mls/hr Q8H IV 09/14/24 17:00 09/15/24 09:24 17 MLS/HR Linezolid 300 ml @ 150 mls/hr Q12HR IV 09/15/24 22:00 Laboratory Results Laboratory Tests 09/14/24 05:27 Urinalysis Test 09/13/24 04:29 Urine Color Dark yellow (Yellow) Urine Clarity Ex.turbid (Clear) Urine pH 5.5 (5.0-9.0) Urine Specific [place] 1.020 (1.001-1.035) Urine Protein 1+ (Negative) H Urine Ketones Trace (Negative) Urine Blood Trace /uL (Negative) H Urine Nitrite 1+ (Negative) H Urine Bilirubin Negative (Negative) Urine Urobilinogen Normal mg/dL (Negative) Urine Leukocyte Esterase 3+ /uL (Negative) Urine RBC 5 /hpf (0 - 3) Urine WBC 1158 /hpf (0 - 3) Urine WBC Clumps Present /hpf (None Seen) Urine Squamous Epithelial Cells None seen /hpf (<5) Urine Bacteria Few /hpf (None Seen) H Urine Mucus Few (None Seen) Urine Glucose 4+ mg/dL (Normal) H Microbiology Microbiology Date/Time Source Procedure Growth Status 09/13/24 04:55 Blood Blood Culture - Preliminary NO GROWTH AFTER 48 HOURS OF INCUBATION. Resulted 09/13/24 04:29 Voided Urine Urine Culture - Preliminary Resulted Labs and/or images reviewed: Labs reviewed by me, Image(s) reviewed by me Assessment/Plan Assessment/Plan Impression: -sepsis -complicated cystitis -diabetes mellitus -obesity -rule out influenza, COVID-19 -rule out cholelithiasis/cholecystitis Plan: Events: Questionable reaction to vancomycin yesterday. Patient was given Solu- Medrol, Pepcid, Benadryl yesterday. Symptoms hives have improved. Patient was no longer febrile. Clinically states he feels better. CT angiogram of the chest, abdomen, pelvis reveals cystitis. -IV antibiotic therapy: Merrem panel, Zyvox -urology consultation: Patient reports having urinary retention, and problems with increase urinary frequency with a past year. -check for influenza and COVID-19 : Negative -change insulin sliding scale to moderate, add Lantus. -blood and urine cultures: Blood culture positive for Gram-positive cocci -repeat labs in a.m. Total time spent with patient discussing and formulating plan of care: 35 minutes. This medical document was created using an electronic medical record system with [employer] dictation system. Although this document has been carefully reviewed, there may still be some phonetic and typographical errors. These areas are purely typographical due to imperfections of the software programs, and do not reflect any compromise in the patient's medical care. Plan discussed with: Patient, Spouse, Other (RN) My Orders Orders - SILVER PAN EDUCATIONAL PROGRAM ASSISTANT Procedure Category Date Status Time Meropenem 1gm Ivpb PHA 09/14/24 In Process (Merrem 1gm/ Ns) 17:00 Vancomycin Per SEKOU 09/15/24 In Process Pharmacy Protoc 16:00 Linezolid 600mg/300ml PHA 09/15/24 In Process (Zyvox) 22:00 Date of Service: Sep 15, 2024 Billing Provider: SILVER PAN NP Common Visit Codes: [id number] INP/OBS CARE(HIGH) SILVER PAN NP Sep 15, 2024 15:44
[2024-09-15] MEDS: LINEZOLID 600MG/300ML 300 ML IV SCH (22:58)
[2024-09-16] VITALS (12 sets, daily range): BP systolic 104–128; BP diastolic 67–78; PULSE 81–100; RESP 16–20; TEMP 98.2–99.2; O2SAT 95–99
[2024-09-16 07:41] LABS: Basophils # (auto) 0 10 ^3/uL (0-0.2); Basophils % (auto) 0.3 % (0.0-2.0); Eosinophils # (auto) 0.1 10 ^3/uL (0-0.8); Eosinophils % (auto) 0.8 % (0.0-7.0); Hematocrit 33.6 % (41.0-53.0); Hemoglobin 11.4 g/dL (13.5-17.5); Lymphocytes # (auto) 3.6 10 ^3/uL (0.4-5.4); Lymphocytes % (auto) 21.9 % (10.0-50.0); Mean Corpuscular Volume 85.2 fL (80.0-100.0); Monocytes # (auto) 1.2 10 ^3/uL (0-1.3); Monocytes % (auto) 7.3 % (0.0-12.0); Neutrophils # (auto) 11.3 10 ^3/uL (1.6-8.6); Neutrophils % (auto) 69.7 % (37.0-80.0); Platelet Count (auto) 389 10^3/uL (140-450); Red Blood Cells 3.94 10^6/uL (4.5-5.90); Red Cell Distribution Width 12.4 % (11.8-14.3); White Blood Cell 16.3 10^3/uL (4.4-10.8)
[2024-09-16 08:05] LABS: Anion Gap 8 (5-15); Carbon Dioxide 23 mmol/L (20-31); Chloride 104 mmol/L (98-107); Potassium 3.7 mmol/L (3.5-5.1); Sodium 135 mmol/L (136-145)
[2024-09-16 08:11] LABS: BUN/Creatinine Ratio 19.8 (10.0-20.0); Blood Urea Nitrogen 17 mg/dL (9-23)
[2024-09-16 08:12] LABS: Glucose 257 mg/dL (74-106)
--- NOTE | 2024-09-16 09:46 | DVHINCON2 ---
Date of service: Sep 17, 2024 Referring Physician Desi Reason for Consultation UTI History of Present Illness History Source: Patient, RN Notes, MD Notes Exam Limitations: No limitations HPI 43-year-old male with DMII came to ER due to flank pains. Patient currently being treated for UTI. Today is the last day of his Bactrim medication. Patient states he still does not feel any better. Still with fever, chills, nausea, back pains, bilateral flank pains, and upper abdominal pain. He denies any dysuria or gross hematuria. UCX positive for ESBL E coli. A1c is 10 Past Medical History Patient Family History: Colon cancer G8 MOTHER Diabetes mellitus G8 MOTHER Kidney stones G8 MOTHER Review of Systems Genitourinary: Frequency, Pain H&P Exam Vital Signs Vital Signs Date Time Temp Pulse Resp B/P (MAP) Pulse Ox O2 Delivery O2 Flow Rate FiO2 09/16/24 07:51 89 18 98 Room Air* 0 21 09/16/24 01:00 98.2 104/68 (80) 98.2 General Appeara: Well developed, Well nourished, Normal Appearance Pulmonary/Respiratory: Normal inspection, Normal breath sounds, Chest non- tender, Lungs clear Cardiovascular/Chest: Normal inspection, Regular rate, Normal Rhythm Neuro/Mental St: Alert, Oriented Appearance: Appropriate appearance, Appropriate insight Eye contact/ Speech: Cooperative, Good eye contact, Normal speech Skin Exam: Normal inspection, Normal color, Warm/dry Labs/Xrays [place] [id number] Ph: [phone] DIAGNOSTIC IMAGING Diagnostic Imaging Report : [id number] Signed PATIENT: JAKE NEGRON ACCT: [id number] UNIT: [id number] : 1980 LOC: [facility] ROOM / BED: [address] [place] [address] AGE / SEX: 43 / M ADM STATUS: ADM IN SERVICE 1243 ORDERING PHYSICIAN: SILVER PAN NP PROCEDURE(s): CAPIV - CT CHEST/AB/PL W CON- IV ONLY REASON: SEPSIS ETIOLOGY ORDER NUMBER(s): [id number], ACCESSION NUMBER(s): [id number] Exam: CT CT CHEST/AB/PL W CON- IV ONLY History: SEPSIS ETIOLOGY Comparison Study: None available at time of dictation. Contrast: Type of contrast: Omnipaque 300 Contrast injected: 99 mL Contrast wasted: 0 TECHNIQUE: A digital direct sales consultant image was obtained. During the uneventful, intravenous administration of contrast material, multislice data acquisition was obtained through the abdomen and pelvis. The data set was subsequently reconstructed into axial images. Images were reviewed on a work station using a combination of axial and multiplanar using a variety of window levels and settings. Radiation Dose Information: CT Dose: CTDI volume is 25.51 mGy. Dose-length product is 1742.25 mGy*cm FINDINGS: Lung Bases: Scarring or linear atelectasis posterior costophrenic angles bilaterally.. No infiltrates or effusions. Normal heart size. No pleural or pericardial effusion. Liver: The liver is normal in size. No focal lesions. Normal hepatic vascular enhancement. CT findings consistent with hepatic steatosis Gallbladder and Biliary Tree: Unremarkable Spleen: Unremarkable Pancreas: The pancreas is normal in appearance without focal lesions or abnormal enhancement. Adrenal Glands: Unremarkable Kidneys: Kidneys demonstrate normal symmetric enhancement without focal lesions, calculi or hydronephrosis. Bladder: Diffuse bladder wall thickening may be secondary to poor urinary distention for infection. Bowel: The stomach is grossly normal in appearance. Small bowel and colon are normal in caliber and distribution. The appendix is not visualized; however, no secondary findings of acute appendicitis identified. Ascites: No free fluid or free air. Lymphadenopathy: No mesenteric, retroperitoneal or periportal lymphadenopathy. Abdominal Wall and Mesentery: Unremarkable. Vasculature: The visualized abdominal aorta is normal in size and caliber. Ab dominal and pelvic vessels demonstrate normal enhancement. Pelvic Organs: Unremarkable Musculoskeletal: No aggressive focal bony lesions, acute fractures or dislocation. Soft tissues: Unremarkable. IMPRESSION: 1. No acute abnormality in the abdomen or pelvis. 2. No infiltrates or effusions. 3. No free fluid or free air. 4. CT findings suggesting hepatic steatosis. 5. Diffuse bladder wall thickening may be secondary to poor urinary distention or infection. All CT scans at this medical facility are performed using dose modulation techniques as appropriate to a performed exam including the following: Automated exposure control was utilized; adjustment of the MA and/or KV according to patient size; and use of iterative reconstruction technique. ATED BY: PETRUZZO,JEROME T Jr. DO DICTATED DATE/TIME: 09/14/241411 SIGNED BY: JEROME HOWARD Jr., DO SIGNED DATE/TIME: 09/14/241411 CC: [place] [id number] Ph: [phone] DIAGNOSTIC IMAGING Diagnostic Imaging Report : [id number] Signed PATIENT: JAKE NEGRON ACCT: [id number] UNIT: [id number] : 1980 LOC: ER ROOM / BED: / AGE / SEX: 43 / M ADM STATUS: REG ER SERVICE 0435 ORDERING PHYSICIAN: ANTHONY FIELDS MD PROCEDURE(s): ABPL - CT AB PEL WO CON-NO ORAL OR IV REASON: bilateral flank pain ORDER NUMBER(s): [id number], ACCESSION NUMBER(s): [id number] Exam: CT CT AB PEL WO CON-NO ORAL OR IV History: bilateral flank pain Comparison Study: None Technique: Multidetector spiral CT of the abdomen was performed from lung bases to pubic symphysis. Imaging was performed without IV contrast. Axial, coronal and sagittal multiplanar reformats were obtained from the axial data set by the technologist. Radiation Dose : 1. Abdomen/Pelvis: CTDIvol 21 mGy, DLP 1323 mGy*cm. Findings: Evaluation of solid organs is limited due to lack of intravenous contrast use. Lung Bases: No acute or significant lung base finding. Normal heart size. No pleural or pericardial effusion. Liver: Mild hepatic steatosis. Hepatomegaly. Gallbladder and Biliary Tree: Unremarkable Spleen: Unremarkable Pancreas: The pancreas is grossly normal in appearance. Adrenal Glands: Unremarkable Kidneys: Left kidney is unremarkable. Mild inflammatory changes around the right kidney. Bladder: Grossly unremarkable for degree of distention. Bowel: The stomach is grossly normal in appearance. Moderate volume colonic stool. The appendix is not visualized; however, no secondary findings of acute appendicitis identified. Ascites: Absent Lymphadenopathy: No mesenteric, retroperitoneal or periportal lymphadenopathy. Abdominal Wall and Mesentery: Unremarkable. Vasculature: The visualized abdominal aorta is normal in size and caliber. E valuation of abdominal and pelvic vessels is limited due to lack of intravenous contrast. Pelvic Organs: Unremarkable Musculoskeletal: No aggressive focal bony lesions, acute fractures or dislocation. IMPRESSION: No hydronephrosis. Mild inflammatory changes surrounding the right kidney possibly representing reactive inflammatory change related to recently passed right renal stone. Otherwise, no acute findings. Radiation optimization: All CT scans at this facility use at least one of these dose optimization techniques: automated exposure control mA and/or kV adjustment per patient size (includes targeted exams where dose is matched to clinical indication) or iterative reconstruction. ATED BY: JAROCHO KRUEGER MD DICTATED DATE/TIME: 09/13/24508 SIGNED BY: JAROCHO KRUEGER MD SIGNED DATE/TIME: 09/13/24508 CC: Labs Test 09/16/24 06:55 09/16/24 06:12 09/14/24 05:27 09/14/24 00:50 Range/Units White Blood Count 16.3 #H 4.4-10.8 10^3/uL Red Blood Count 3.94 L 4.5-5.90 10^6/uL Hemoglobin 11.4 #L 13.5-17.5 g/dL Hematocrit 33.6 #L 41.0-53.0 % Mean Corpuscular Volume 85.2 80.0-100.0 fL Mean Corpuscular Hemoglobin 29.0 28.0-32.0 pg Mean Corpuscular Hemoglobin Concent 34.0 32.0-36.0 g/dL Red Cell Distribution Width 12.4 11.8-14.3 % Platelet Count 389 140-450 10^3/uL Mean Platelet Volume 8.3 6.9-10.8 fL Neutrophils (%) (Auto) 69.7 37.0-80.0 % Lymphocytes (%) (Auto) 21.9 10.0-50.0 % Monocytes (%) (Auto) 7.3 0.0-12.0 % Eosinophils (%) (Auto) 0.8 0.0-7.0 % Basophils (%) (Auto) 0.3 0.0-2.0 % Neutrophils # (Auto) 11.3 H 1.6-8.6 10 ^3/uL Lymphocytes # (Auto) 3.6 0.4-5.4 10 ^3/uL Monocytes # (Auto) 1.2 0-1.3 10 ^3/uL Eosinophils # (Auto) 0.1 0-0.8 10 ^3/uL Basophils # (Auto) 0 0-0.2 10 ^3/uL Nucleated Red Blood Cells 0.0 % Sodium Level 135 L 136-145 mmol/L Potassium Level 3.7 3.5-5.1 mmol/L Chloride Level 104 98-107 mmol/L Carbon Dioxide Level 23 20-31 mmol/L Anion Gap 8 5-15 Blood Urea Nitrogen 17 9-23 mg/dL Creatinine 0.86 0.700-1.30 mg/dL Glomerular Filtration Rate Calc 109 >90 mL/min BUN/Creatinine Ratio 19.8 10.0-20.0 Serum Glucose 257 H 74-106 mg/dL Calcium Level 9.0 8.7-10.4 mg/dL POC Glucose 257 H 70-106 mg/dl Total Bilirubin 1.0 0.2-1.0 mg/dL Aspartate Amino Transferase (AST) 12 L 13-40 U/L Alanine Aminotransferase (ALT) 22 7-40 U/L Alkaline Phosphatase 90 46-116 U/L Total Protein 7.1 5.7-8.2 g/dL Albumin 4.0 3.2-4.8 g/dL SARS-CoV-2 Antigen (Rapid) Negative NEGATIVE Test 09/14/24 00:00 09/13/24 04:40 09/13/24 04:29 Range/Units Influenza Type A Antigen Negative Negative Influenza Type B Antigen Negative Negative Erythrocyte Sedimentation Rate 55 H 0-20 mm/hr Hemoglobin A1c 10.0 H <5.7 % A1C Lactic Acid Level 1.1 0.4-2.0 mmol/L C-Reactive Protein High Sensitivity 10.24 H <1.0 mg/dL Lipase 42 12-53 U/L Urine Color Dark yellow Yellow Urine Clarity Ex.turbid Clear Urine pH 5.5 5.0-9.0 Urine Specific [place] 1.020 1.001-1.035 Urine Protein 1+ H Negative Urine Ketones Trace Negative Urine Blood Trace H Negative /uL Urine Nitrite 1+ H Negative Urine Bilirubin Negative Negative Urine Urobilinogen Normal Negative mg/dL Urine Leukocyte Esterase 3+ Negative /uL Urine RBC 5 0 - 3 /hpf Urine WBC 1158 0 - 3 /hpf Urine WBC Clumps Present None Seen /hpf Urine Squamous Epithelial Cells None seen <5 /hpf Urine Bacteria Few H None Seen /hpf Urine Mucus Few None Seen Urine Glucose 4+ H Normal mg/dL Microbiology Date/Time Source Procedure Growth Status 09/13/24 04:55 Blood Blood Culture - Preliminary NO GROWTH AFTER 72 HOURS OF INCUBATION. Resulted 09/13/24 04:29 Voided Urine Urine Culture - Preliminary Resulted Assessment/Plan Problem List: (1) Bacteremia (2) Pyelonephritis (3) UTI (urinary tract infection) Plan treat uti/sepsis outpt cystoscopy and urodynamics TBA Plan discussed with: Patient ANA COUCH NP Sep 16, 2024 09:46
--- NOTE | 2024-09-16 13:34 | DVHPN2 ---
Subjective Patient was states that his generalized weakness has improved. Fevers have improved. Patient also reports that his abdominal pain is slowly improving. Reviewed: Care Plan, H&P, Labs, Medications Changes from previous H/P or p: No Changes General: Per HPI Eyes: No Pain, No Vision change, No Conjunctivae inflammation, No Eyelid inflammation, No Other, No Redness ENT: No Ear pain, No Ear discharge, No Nose pain, No Nose discharge, No Nose congestion, No Mouth pain, No Mouth swelling, No Throat pain, No Throat swelling, No Other Cardiovascular: No Chest Pain, No Palpitations, No Orthopnea, No Paroxysmal Noc. Dyspnea, No Edema, No Lt Headedness, No Other Respiratory: No Cough, No Dry, No Shortness of breath, No SOB with excertion, No Wheezing, No Hemoptysis, No Pleuritic Pain, No Sputum, No Other Gastrointestinal: Nausea; No Vomiting; Abdominal Pain; No Diarrhea, No Constipation, No Melena, No Hematochezia, No Other Genitourinary: No Dysuria, No Frequency, No Incontinence; Hematuria; No Retention, No Other Musculoskeletal: other (Flank pain); No neck pain, No shoulder pain, No arm pain; back pain; No hand pain, No leg pain, No foot pain Skin: No Rash, No Lesions, No Jaundice, No Bruising, No Other Objective Vitals Vital Signs Date Time Temp Pulse Resp B/P (MAP) Pulse Ox O2 Delivery O2 Flow Rate FiO2 09/16/24 13:09 98.3 81 16 120/77 (91) 98 98.3 09/16/24 10:00 Room Air* 0 21 Intake/Output Intake and Output 09/16/24 07:00 Intake Total 3290 ml Balance 3290 ml Intake Oral 1840 ml IV Total 1450 ml # Voids 8 # Bowel Movements 1 General Appearance: Alert, Oriented X3, Cooperative, mild distress HEENT: Atraumatic, PERRLA Lungs: Clear to auscultation, Normal air movement Cardiovascular: Normal S1, Normal S2 Abdomen: Normal bowel sounds, Soft, No tenderness Musculoskeletal: Normal sensory function, Normal motor function Neuro: Normal gait, Normal speech Psych/Mental Status: Mental status NL, Mood NL Medications Current Medications Medications Dose Ordered Sig/Rosalina Route Start Time Stop Time Status Last Admin Dose Admin Diagnostic Test (Pha) 1 strip ACHS 09/13/24 22:00 09/16/24 11:40 1 STRIP Insulin Human Regular HS SC 09/13/24 22:00 09/15/24 22:21 6 UNITS Insulin Human Regular AC SC 09/14/24 07:00 09/16/24 11:40 9 UNITS Dextrose 50 ml UD PRN IV 09/13/24 18:45 Morphine Sulfate 1 mg Q4HPRN PRN IV 09/13/24 18:45 Acetaminophen/ Hydrocodone Bitart 1 tab Q6HPRN PRN PO 09/13/24 18:45 09/13/24 20:44 1 TAB Acetaminophen 500 mg Q8HP PRN PO 09/13/24 18:45 09/14/24 13:17 500 MG Ondansetron HCl 4 mg Q6HP PRN IV 09/13/24 18:45 Albuterol 2.5 mg Q4HPRN PRN NEB 09/13/24 18:45 Ipratropium [place] 0.5 mg Q4HPRN PRN NEB 09/13/24 18:45 Insulin Glargine 15 units HS SC 09/14/24 22:00 09/15/24 22:25 15 UNITS Meropenem 50 ml @ 17 mls/hr Q8H IV 09/14/24 17:00 09/16/24 09:18 17 MLS/HR Linezolid 300 ml @ 150 mls/hr Q12HR IV 09/15/24 22:00 09/16/24 09:18 150 MLS/HR Laboratory Results Laboratory Tests 09/16/24 06:55 Chemistry Test 09/16/24 06:55 Calcium Level 9.0 mg/dL (8.7-10.4) Urinalysis Test 09/13/24 04:29 Urine Color Dark yellow (Yellow) Urine Clarity Ex.turbid (Clear) Urine pH 5.5 (5.0-9.0) Urine Specific [place] 1.020 (1.001-1.035) Urine Protein 1+ (Negative) H Urine Ketones Trace (Negative) Urine Blood Trace /uL (Negative) H Urine Nitrite 1+ (Negative) H Urine Bilirubin Negative (Negative) Urine Urobilinogen Normal mg/dL (Negative) Urine Leukocyte Esterase 3+ /uL (Negative) Urine RBC 5 /hpf (0 - 3) Urine WBC 1158 /hpf (0 - 3) Urine WBC Clumps Present /hpf (None Seen) Urine Squamous Epithelial Cells None seen /hpf (<5) Urine Bacteria Few /hpf (None Seen) H Urine Mucus Few (None Seen) Urine Glucose 4+ mg/dL (Normal) H Microbiology Microbiology Date/Time Source Procedure Growth Status 09/13/24 04:55 Blood Blood Culture - Preliminary NO GROWTH AFTER 72 HOURS OF INCUBATION. Resulted 09/13/24 04:29 Voided Urine Urine Culture - Final Escherichia coli - ESBL Complete Labs and/or images reviewed: Labs reviewed by me, Image(s) reviewed by me Assessment/Plan Assessment/Plan Impression: -sepsis -complicated cystitis -diabetes mellitus -obesity -rule out influenza, COVID-19 -rule out cholelithiasis/cholecystitis Plan: Events: Patient positive for ESBL in the urine. Urology consultation placed. Recommendations reviewed. -IV antibiotic therapy: Change meropenem to Invanz. Continue Zyvox until blood culture is final. -check for influenza and COVID-19 : Negative -change insulin sliding scale to moderate, add Lantus. -blood and urine cultures: Blood culture positive for Gram-positive cocci -repeat labs in a.m. Total time spent with patient discussing and formulating plan of care: 35 minutes. This medical document was created using an electronic medical record system with [employer] dictation system. Although this document has been carefully reviewed, there may still be some phonetic and typographical errors. These areas are purely typographical due to imperfections of the software programs, and do not reflect any compromise in the patient's medical care. Plan discussed with: Patient, Other (RN) My Orders Orders - SILVER PAN NP Procedure Category Date Status Time * Urology Consult CONS 09/15/24 Transmitted 15:38 Blood Culture ROSE 09/16/24 Logged 11:53 * Supervisor Stripping CONS 09/16/24 Transmitted Consult Invanz 1gm Ivpb Daily PHA 09/16/24 Verified 22:00 Date of Service: Sep 16, 2024 Billing Provider: SILVER PAN NP Common Visit Codes: [id number] INP/OBS CARE(HIGH) SILVER PAN NP Sep 16, 2024 13:34
[2024-09-16] MEDS: INSULIN LANTUS (GLARGINE) 1 /0.01ml (100units/ml) SC SCH (21:28)
[2024-09-16] MEDS: ERTAPENEM SOD INJ 1 GM in SODIUM CHL 0.9% 50 ML IV SCH (23:29)
[2024-09-17] VITALS (10 sets, daily range): BP systolic 112–141; BP diastolic 72–84; PULSE 8–114; RESP 16–20; TEMP 97.9–99.9; O2SAT 91–97
--- NOTE | 2024-09-17 10:42 | DVHPN2 ---
Subjective Patient clinically improved. Denies any symptoms. Reviewed: Care Plan, H&P, Labs, Medications Changes from previous H/P or p: No Changes General: Per HPI Eyes: No Pain, No Vision change, No Conjunctivae inflammation, No Eyelid inflammation, No Other, No Redness ENT: No Ear pain, No Ear discharge, No Nose pain, No Nose discharge, No Nose congestion, No Mouth pain, No Mouth swelling, No Throat pain, No Throat swelling, No Other Cardiovascular: No Chest Pain, No Palpitations, No Orthopnea, No Paroxysmal Noc. Dyspnea, No Edema, No Lt Headedness, No Other Respiratory: No Cough, No Dry, No Shortness of breath, No SOB with excertion, No Wheezing, No Hemoptysis, No Pleuritic Pain, No Sputum, No Other Gastrointestinal: Nausea; No Vomiting; Abdominal Pain; No Diarrhea, No Constipation, No Melena, No Hematochezia, No Other Genitourinary: No Dysuria, No Frequency, No Incontinence; Hematuria; No Retention, No Other Musculoskeletal: other (Flank pain); No neck pain, No shoulder pain, No arm pain; back pain; No hand pain, No leg pain, No foot pain Skin: No Rash, No Lesions, No Jaundice, No Bruising, No Other Objective Vitals Vital Signs Date Time Temp Pulse Resp B/P (MAP) Pulse Ox O2 Delivery O2 Flow Rate FiO2 09/17/24 09:00 98.0 86 16 119/79 (92) 91 98.0 09/17/24 07:05 Room Air* 0 21 21 Intake/Output Intake and Output 09/17/24 07:00 Intake Total 3214 ml Output Total 800 ml Balance 2414 ml Intake Oral 2514 ml IV Total 700 ml Output Urine Total 800 ml # Bowel Movements 1 General Appearance: Alert, Oriented X3, Cooperative, mild distress HEENT: Atraumatic, PERRLA Lungs: Clear to auscultation, Normal air movement Cardiovascular: Normal S1, Normal S2 Abdomen: Normal bowel sounds, Soft, No tenderness Musculoskeletal: Normal sensory function, Normal motor function Neuro: Normal gait, Normal speech Psych/Mental Status: Mental status NL, Mood NL Medications Current Medications Medications Dose Ordered Sig/Rosalina Route Start Time Stop Time Status Last Admin Dose Admin Diagnostic Test (Pha) 1 strip ACHS 09/13/24 22:00 09/17/24 05:53 1 STRIP Insulin Human Regular HS SC 09/13/24 22:00 09/16/24 21:29 8 UNITS Insulin Human Regular AC SC 09/14/24 07:00 09/17/24 05:54 3 UNITS Dextrose 50 ml UD PRN IV 09/13/24 18:45 Morphine Sulfate 1 mg Q4HPRN PRN IV 09/13/24 18:45 Acetaminophen/ Hydrocodone Bitart 1 tab Q6HPRN PRN PO 09/13/24 18:45 09/13/24 20:44 1 TAB Acetaminophen 500 mg Q8HP PRN PO 09/13/24 18:45 09/14/24 13:17 500 MG Ondansetron HCl 4 mg Q6HP PRN IV 09/13/24 18:45 Albuterol 2.5 mg Q4HPRN PRN NEB 09/13/24 18:45 Ipratropium [place] 0.5 mg Q4HPRN PRN NEB 09/13/24 18:45 Linezolid 300 ml @ 150 mls/hr Q12HR IV 09/15/24 22:00 09/17/24 09:34 150 MLS/HR Ertapenem 1 gm/ Sodium Chloride 50 ml @ 100 mls/hr DAILY@2200 IV 09/16/24 22:00 09/16/24 23:29 100 MLS/HR Insulin Glargine 22 units [facility] 09/16/24 22:00 09/16/24 21:28 22 UNITS Laboratory Results Laboratory Tests 09/16/24 06:55 Urinalysis Test 09/13/24 04:29 Urine Color Dark yellow (Yellow) Urine Clarity Ex.turbid (Clear) Urine pH 5.5 (5.0-9.0) Urine Specific [place] 1.020 (1.001-1.035) Urine Protein 1+ (Negative) H Urine Ketones Trace (Negative) Urine Blood Trace /uL (Negative) H Urine Nitrite 1+ (Negative) H Urine Bilirubin Negative (Negative) Urine Urobilinogen Normal mg/dL (Negative) Urine Leukocyte Esterase 3+ /uL (Negative) Urine RBC 5 /hpf (0 - 3) Urine WBC 1158 /hpf (0 - 3) Urine WBC Clumps Present /hpf (None Seen) Urine Squamous Epithelial Cells None seen /hpf (<5) Urine Bacteria Few /hpf (None Seen) H Urine Mucus Few (None Seen) Urine Glucose 4+ mg/dL (Normal) H Microbiology Microbiology Date/Time Source Procedure Growth Status 09/13/24 04:55 Blood Blood Culture - Preliminary NO GROWTH AFTER 72 HOURS OF INCUBATION. Resulted 09/13/24 04:29 Voided Urine Urine Culture - Final Escherichia coli - ESBL Complete Labs and/or images reviewed: Labs reviewed by me, Image(s) reviewed by me Assessment/Plan Assessment/Plan Impression: -sepsis -complicated cystitis -diabetes mellitus -obesity -rule out influenza, COVID-19 -rule out cholelithiasis/cholecystitis Plan: Events: Discussion made with the patient regarding plan of care including IV antibiotic therapy. Midline placement. Social service consultation for IV Invanz. -IV antibiotic therapy: Stop Zyvox, continue Invanz -start metformin -diabetic education, dietary consultation -change insulin sliding scale to moderate, add Lantus. -repeat labs in a.m. Total time spent with patient discussing and formulating plan of care: 35 minutes. This medical document was created using an electronic medical record system with [employer] dictation system. Although this document has been carefully reviewed, there may still be some phonetic and typographical errors. These areas are purely typographical due to imperfections of the software programs, and do not reflect any compromise in the patient's medical care. Plan discussed with: Patient, Other (RN) My Orders Orders - SILVER PAN NP Procedure Category Date Status Time Blood Culture ROSE 09/16/24 In Process 11:53 * Personal Caregiver CONS 09/16/24 Transmitted Consult Ertapenem Sod Inj PHA 09/16/24 In Process (Invanz) 22:00 Insulin Lantus PHA 09/16/24 In Process (Glargine) (Lantus) 22:00 Complete Blood Count LAB 09/18/24 Verified 04:00 *Rn Family Practice Doctor REFER 09/17/24 Transmitted Referral 10:29 * Dietary Consult CONS 09/17/24 Transmitted 10:29 * Personal Caregiver CONS 09/17/24 Transmitted Consult Insert Midline ORDERS 09/17/24 Verified 10:29 Date of Service: Sep 17, 2024 Billing Provider: SILVER PAN NP Common Visit Codes: [id number] INP/OBS CARE(HIGH) SILVER PAN NP Sep 17, 2024 10:42
[2024-09-17] MEDS: fentaNYL Drip 2500mCg/250mlNS 250 ML IV ONE (11:31)
[2024-09-17] MEDS: MIDAZOLAM DRIP 50 mg/50mL 50 ML IV ONE (11:32)
[2024-09-17] MEDS: NOREPINEPHRINE 8 MG/250ML KIT 250 ML IV ONE (11:32)
[2024-09-17] MEDS: PHENYLEPHRINE IV 250 ML IV ONE (11:32)
[2024-09-17] MEDS ORDERED: THROAT LOZENGES(CEPASTAT) MT PRN (18:15)
[2024-09-17] MEDS: metFORMIN HYDROCHLORIDE 500 MG TAB PO SCH (18:41)
[2024-09-18] VITALS (11 sets, daily range): BP systolic 109–141; BP diastolic 56–85; PULSE 65–109; RESP 16–19; TEMP 98.2–101.5; O2SAT 92–96
[2024-09-18 06:39] LABS: Basophils # (auto) 0.1 10 ^3/uL (0-0.2); Basophils % (auto) 0.5 % (0.0-2.0); Eosinophils # (auto) 0.1 10 ^3/uL (0-0.8); Eosinophils % (auto) 0.5 % (0.0-7.0); Hematocrit 36.3 % (41.0-53.0); Hemoglobin 12.6 g/dL (13.5-17.5); Lymphocytes # (auto) 1.7 10 ^3/uL (0.4-5.4); Lymphocytes % (auto) 13.2 % (10.0-50.0); Mean Corpuscular Hemoglobin 29.5 pg (28.0-32.0); Mean Corpuscular Hgb Conc. 34.6 g/dL (32.0-36.0); Mean Corpuscular Volume 85.3 fL (80.0-100.0); Monocytes # (auto) 1.6 10 ^3/uL (0-1.3); Monocytes % (auto) 12.3 % (0.0-12.0); Neutrophils # (auto) 9.4 10 ^3/uL (1.6-8.6); Neutrophils % (auto) 73.5 % (37.0-80.0); Platelet Count (auto) 387 10^3/uL (140-450); Red Blood Cells 4.25 10^6/uL (4.5-5.90); Red Cell Distribution Width 12.1 % (11.8-14.3); White Blood Cell 12.8 10^3/uL (4.4-10.8)
[2024-09-18] MEDS ORDERED: METF-370 PO (10:02)
[2024-09-18] MEDS ORDERED: BLOO1KIT60 XX (10:02)
[2024-09-18] MEDS ORDERED: LANC-268 XX (10:02)
--- NOTE | 2024-09-18 10:03 | DVHPN2 ---
Subjective Patient clinically improved. Denies any symptoms. Reviewed: Care Plan, H&P, Labs, Medications Changes from previous H/P or p: No Changes General: Per HPI Eyes: No Pain, No Vision change, No Conjunctivae inflammation, No Eyelid inflammation, No Other, No Redness ENT: No Ear pain, No Ear discharge, No Nose pain, No Nose discharge, No Nose congestion, No Mouth pain, No Mouth swelling, No Throat pain, No Throat swelling, No Other Cardiovascular: No Chest Pain, No Palpitations, No Orthopnea, No Paroxysmal Noc. Dyspnea, No Edema, No Lt Headedness, No Other Respiratory: No Cough, No Dry, No Shortness of breath, No SOB with excertion, No Wheezing, No Hemoptysis, No Pleuritic Pain, No Sputum, No Other Gastrointestinal: Nausea; No Vomiting; Abdominal Pain; No Diarrhea, No Constipation, No Melena, No Hematochezia, No Other Genitourinary: No Dysuria, No Frequency, No Incontinence; Hematuria; No Retention, No Other Musculoskeletal: other (Flank pain); No neck pain, No shoulder pain, No arm pain; back pain; No hand pain, No leg pain, No foot pain Skin: No Rash, No Lesions, No Jaundice, No Bruising, No Other Objective Vitals Vital Signs Date Time Temp Pulse Resp B/P (MAP) Pulse Ox O2 Delivery O2 Flow Rate FiO2 09/18/24 08:51 99.1 91 18 125/85 (98) 92 99.1 09/18/24 08:00 Room Air* 0 21 Intake/Output Intake and Output 09/18/24 07:00 Intake Total 1810 ml Balance 1810 ml Intake Oral 1410 ml IV Total 400 ml # Voids 13 # Bowel Movements 1 General Appearance: Alert, Oriented X3, Cooperative, mild distress HEENT: Atraumatic, PERRLA Lungs: Clear to auscultation, Normal air movement Cardiovascular: Normal S1, Normal S2 Abdomen: Normal bowel sounds, Soft, No tenderness Musculoskeletal: Normal sensory function, Normal motor function Neuro: Normal gait, Normal speech Skin: Dry, Intact Psych/Mental Status: Mental status NL, Mood NL Medications Current Medications Medications Dose Ordered Sig/Rosalina Route Start Time Stop Time Status Last Admin Dose Admin Diagnostic Test (Pha) 1 strip ACHS 09/13/24 22:00 09/18/24 06:25 1 STRIP Insulin Human Regular HS SC 09/13/24 22:00 09/17/24 23:33 3 UNITS Insulin Human Regular AC SC 09/14/24 07:00 09/18/24 06:31 3 UNITS Dextrose 50 ml UD PRN IV 09/13/24 18:45 Morphine Sulfate 1 mg Q4HPRN PRN IV 09/13/24 18:45 Acetaminophen/ Hydrocodone Bitart 1 tab Q6HPRN PRN PO 09/13/24 18:45 09/13/24 20:44 1 TAB Acetaminophen 500 mg Q8HP PRN PO 09/13/24 18:45 09/14/24 13:17 500 MG Ondansetron HCl 4 mg Q6HP PRN IV 09/13/24 18:45 Albuterol 2.5 mg Q4HPRN PRN NEB 09/13/24 18:45 Ipratropium [place] 0.5 mg Q4HPRN PRN NEB 09/13/24 18:45 Ertapenem 1 gm/ Sodium Chloride 50 ml @ 100 mls/hr DAILY@2200 IV 09/16/24 22:00 09/17/24 23:27 100 MLS/HR Insulin Glargine 22 units HS SC 09/16/24 22:00 09/17/24 23:31 22 UNITS Metformin HCl 500 mg BIDWM PO 09/17/24 18:00 09/18/24 07:57 500 MG Throat Lozenges 1 marisol Q2HP PRN MT 09/17/24 18:15 Laboratory Results Laboratory Tests 09/16/24 06:55 09/18/24 05:31 Urinalysis Test 09/13/24 04:29 Urine Color Dark yellow (Yellow) Urine Clarity Ex.turbid (Clear) Urine pH 5.5 (5.0-9.0) Urine Specific [place] 1.020 (1.001-1.035) Urine Protein 1+ (Negative) H Urine Ketones Trace (Negative) Urine Blood Trace /uL (Negative) H Urine Nitrite 1+ (Negative) H Urine Bilirubin Negative (Negative) Urine Urobilinogen Normal mg/dL (Negative) Urine Leukocyte Esterase 3+ /uL (Negative) Urine RBC 5 /hpf (0 - 3) Urine WBC 1158 /hpf (0 - 3) Urine WBC Clumps Present /hpf (None Seen) Urine Squamous Epithelial Cells None seen /hpf (<5) Urine Bacteria Few /hpf (None Seen) H Urine Mucus Few (None Seen) Urine Glucose 4+ mg/dL (Normal) H Microbiology Microbiology Date/Time Source Procedure Growth Status 09/16/24 13:38 Blood Blood Culture - Preliminary NO GROWTH AFTER 24 HOURS OF INCUBATION. Resulted 09/13/24 04:29 Voided Urine Urine Culture - Final Escherichia coli - ESBL Complete Labs and/or images reviewed: Labs reviewed by me, Image(s) reviewed by me Assessment/Plan Assessment/Plan Impression: -sepsis -complicated cystitis -diabetes mellitus -obesity -rule out influenza, COVID-19 -rule out cholelithiasis/cholecystitis Plan: Events: Patient was febrile last night. -IV antibiotic therapy: Continue Invanz -continue Lantus, regular insulin sliding scale, metformin -diabetic education, dietary consultation -social service consultation for discharge planning with IV antibiotic therapy: Invanz 1 g daily. Midline placed -repeat labs in a.m. Total time spent with patient discussing and formulating plan of care: 35 minutes. This medical document was created using an electronic medical record system with Fwd: Power dictation system. Although this document has been carefully reviewed, there may still be some phonetic and typographical errors. These areas are purely typographical due to imperfections of the software programs, and do not reflect any compromise in the patient's medical care. Plan discussed with: Patient, Other (RN) My Orders Orders - SILVER PAN NP Procedure Category Date Status Time *Rn Field Technical Assistant REFER 09/17/24 Transmitted Referral 10:29 * Dietary Consult CONS 09/17/24 Transmitted 10:29 * Head Banquet Waiter/Waitress CONS 09/17/24 Transmitted Consult Insert Midline ORDERS 09/17/24 Transmitted 10:29 Metformin PHA 09/17/24 In Process Hydrochloride 18:00 Date of Service: Sep 18, 2024 Billing Provider: SILVER PAN NP Common Visit Codes: [id number] INP/OBS CARE(HIGH) SILVER PAN NP Sep 18, 2024 10:03
[2024-09-19] VITALS (8 sets, daily range): BP systolic 107–133; BP diastolic 67–88; PULSE 65–89; RESP 16–21; TEMP 97.7–99.7; O2SAT 92–97
--- NOTE | 2024-09-19 12:23 | DVHPN2 ---
Subjective Patient clinically improved. Denies any symptoms. Reviewed: Care Plan, H&P, Labs, Medications Changes from previous H/P or p: No Changes General: Per HPI Eyes: No Pain, No Vision change, No Conjunctivae inflammation, No Eyelid inflammation, No Other, No Redness ENT: No Ear pain, No Ear discharge, No Nose pain, No Nose discharge, No Nose congestion, No Mouth pain, No Mouth swelling, No Throat pain, No Throat swelling, No Other Cardiovascular: No Chest Pain, No Palpitations, No Orthopnea, No Paroxysmal Noc. Dyspnea, No Edema, No Lt Headedness, No Other Respiratory: No Cough, No Dry, No Shortness of breath, No SOB with excertion, No Wheezing, No Hemoptysis, No Pleuritic Pain, No Sputum, No Other Gastrointestinal: Nausea; No Vomiting; Abdominal Pain; No Diarrhea, No Constipation, No Melena, No Hematochezia, No Other Genitourinary: No Dysuria, No Frequency, No Incontinence; Hematuria; No Retention, No Other Musculoskeletal: other (Flank pain); No neck pain, No shoulder pain, No arm pain; back pain; No hand pain, No leg pain, No foot pain Skin: No Rash, No Lesions, No Jaundice, No Bruising, No Other Objective Vitals Vital Signs Date Time Temp Pulse Resp B/P (MAP) Pulse Ox O2 Delivery O2 Flow Rate FiO2 09/19/24 09:38 94 Room Air 09/19/24 09:38 0 21 09/19/24 09:00 97.7 87 17 107/67 (80) 97.7 Intake/Output Intake and Output 09/19/24 07:00 Intake Total 1900 ml Balance 1900 ml Intake Oral 1800 ml IV Total 100 ml # Voids 8 General Appearance: Alert, Oriented X3, Cooperative, mild distress HEENT: Atraumatic, PERRLA Lungs: Clear to auscultation, Normal air movement Cardiovascular: Normal S1, Normal S2 Abdomen: Normal bowel sounds, Soft, No tenderness Musculoskeletal: Normal sensory function, Normal motor function Neuro: Normal gait, Normal speech Skin: Dry, Intact Psych/Mental Status: Mental status NL, Mood NL Medications Current Medications Medications Dose Ordered Sig/Rosalina Route Start Time Stop Time Status Last Admin Dose Admin Diagnostic Test (Pha) 1 strip ACHS 09/13/24 22:00 09/19/24 10:43 1 STRIP Insulin Human Regular HS SC 09/13/24 22:00 09/18/24 21:07 2 UNITS Insulin Human Regular AC SC 09/14/24 07:00 09/19/24 10:46 3 UNITS Dextrose 50 ml UD PRN IV 09/13/24 18:45 Morphine Sulfate 1 mg Q4HPRN PRN IV 09/13/24 18:45 Acetaminophen/ Hydrocodone Bitart 1 tab Q6HPRN PRN PO 09/13/24 18:45 09/13/24 20:44 1 TAB Acetaminophen 500 mg Q8HP PRN PO 09/13/24 18:45 09/14/24 13:17 500 MG Ondansetron HCl 4 mg Q6HP PRN IV 09/13/24 18:45 Albuterol 2.5 mg Q4HPRN PRN NEB 09/13/24 18:45 Cancel Ipratropium [place] 0.5 mg Q4HPRN PRN NEB 09/13/24 18:45 Cancel Ertapenem 1 gm/ Sodium Chloride 50 ml @ 100 mls/hr DAILY@2200 IV 09/16/24 22:00 09/18/24 20:58 100 MLS/HR Insulin Glargine 22 units HS SC 09/16/24 22:00 09/18/24 21:07 22 UNITS Metformin HCl 500 mg BIDWM PO 09/17/24 18:00 09/19/24 07:37 500 MG Throat Lozenges 1 marisol Q2HP PRN MT 09/17/24 18:15 Laboratory Results Laboratory Tests 09/16/24 06:55 09/18/24 05:31 Urinalysis Test 09/13/24 04:29 Urine Color Dark yellow (Yellow) Urine Clarity Ex.turbid (Clear) Urine pH 5.5 (5.0-9.0) Urine Specific [place] 1.020 (1.001-1.035) Urine Protein 1+ (Negative) H Urine Ketones Trace (Negative) Urine Blood Trace /uL (Negative) H Urine Nitrite 1+ (Negative) H Urine Bilirubin Negative (Negative) Urine Urobilinogen Normal mg/dL (Negative) Urine Leukocyte Esterase 3+ /uL (Negative) Urine RBC 5 /hpf (0 - 3) Urine WBC 1158 /hpf (0 - 3) Urine WBC Clumps Present /hpf (None Seen) Urine Squamous Epithelial Cells None seen /hpf (<5) Urine Bacteria Few /hpf (None Seen) H Urine Mucus Few (None Seen) Urine Glucose 4+ mg/dL (Normal) H Microbiology Microbiology Date/Time Source Procedure Growth Status 09/16/24 13:38 Blood Blood Culture - Preliminary NO GROWTH AFTER 48 HOURS OF INCUBATION. Resulted 09/13/24 04:29 Voided Urine Urine Culture - Final Escherichia coli - ESBL Complete Labs and/or images reviewed: Labs reviewed by me, Image(s) reviewed by me Assessment/Plan Assessment/Plan Impression: -sepsis -complicated cystitis -diabetes mellitus -obesity -rule out influenza, COVID-19 -rule out cholelithiasis/cholecystitis Plan: Events: Clinically stable. Discharge once home IV antibiotics has been established. -IV antibiotic therapy: Continue Invanz -continue Lantus, regular insulin sliding scale, metformin -diabetic education, dietary consultation -social service consultation for discharge planning with IV antibiotic therapy: Invanz 1 g daily. Midline placed -repeat labs in a.m. Total time spent with patient discussing and formulating plan of care: 35 minutes. This medical document was created using an electronic medical record system with [employer] dictation system. Although this document has been carefully reviewed, there may still be some phonetic and typographical errors. These areas are purely typographical due to imperfections of the software programs, and do not reflect any compromise in the patient's medical care. Plan discussed with: Patient, Other (RN) Date of Service: Sep 19, 2024 Billing Provider: SILVER PAN NP Common Visit Codes: [id number] INP/OBS CARE(HIGH) SILVER PAN NP Sep 19, 2024 12:23
[2024-09-19] MEDS: INSULIN LANTUS (GLARGINE) 1 /0.01ml (100units/ml) SC SCH (21:53)
[2024-09-20] VITALS (8 sets, daily range): BP systolic 99–118; BP diastolic 66–73; PULSE 84–90; RESP 16–20; TEMP 97.9–98.4; O2SAT 95–100
[2024-09-20 06:31] LABS: Basophils # (auto) 0.1 10 ^3/uL (0-0.2); Basophils % (auto) 0.5 % (0.0-2.0); Eosinophils # (auto) 0.3 10 ^3/uL (0-0.8); Eosinophils % (auto) 2.6 % (0.0-7.0); Hematocrit 34.5 % (41.0-53.0); Hemoglobin 12.3 g/dL (13.5-17.5); Lymphocytes # (auto) 3.2 10 ^3/uL (0.4-5.4); Lymphocytes % (auto) 31.4 % (10.0-50.0); Mean Corpuscular Hemoglobin 30.3 pg (28.0-32.0); Mean Corpuscular Hgb Conc. 35.7 g/dL (32.0-36.0); Monocytes # (auto) 1.5 10 ^3/uL (0-1.3); Monocytes % (auto) 14.4 % (0.0-12.0); Neutrophils # (auto) 5.3 10 ^3/uL (1.6-8.6); Neutrophils % (auto) 51.1 % (37.0-80.0); Nucleated Red Blood Cells % 0.1 %; Platelet Count (auto) 394 10^3/uL (140-450); Red Blood Cells 4.06 10^6/uL (4.5-5.90); Red Cell Distribution Width 12.3 % (11.8-14.3); White Blood Cell 10.3 10^3/uL (4.4-10.8)
--- NOTE | 2024-09-20 12:06 | DVHPN2 ---
Subjective Patient clinically improved. Denies any symptoms. Reviewed: Care Plan, H&P, Labs, Medications Changes from previous H/P or p: No Changes General: Per HPI Eyes: No Pain, No Vision change, No Conjunctivae inflammation, No Eyelid inflammation, No Other, No Redness ENT: No Ear pain, No Ear discharge, No Nose pain, No Nose discharge, No Nose congestion, No Mouth pain, No Mouth swelling, No Throat pain, No Throat swelling, No Other Cardiovascular: No Chest Pain, No Palpitations, No Orthopnea, No Paroxysmal Noc. Dyspnea, No Edema, No Lt Headedness, No Other Respiratory: No Cough, No Dry, No Shortness of breath, No SOB with excertion, No Wheezing, No Hemoptysis, No Pleuritic Pain, No Sputum, No Other Gastrointestinal: Nausea; No Vomiting; Abdominal Pain; No Diarrhea, No Constipation, No Melena, No Hematochezia, No Other Genitourinary: No Dysuria, No Frequency, No Incontinence; Hematuria; No Retention, No Other Musculoskeletal: other (Flank pain); No neck pain, No shoulder pain, No arm pain; back pain; No hand pain, No leg pain, No foot pain Skin: No Rash, No Lesions, No Jaundice, No Bruising, No Other Objective Vitals Vital Signs Date Time Temp Pulse Resp B/P (MAP) Pulse Ox O2 Delivery O2 Flow Rate FiO2 09/20/24 08:30 98.4 90 19 99/66 (77) 100 98.4 09/19/24 20:00 Room Air* 0 21 Intake/Output Intake and Output 09/20/24 07:00 Intake Total 2350 ml Balance 2350 ml Intake Oral 2300 ml IV Total 50 ml # Voids 3 # Bowel Movements 1 General Appearance: Alert, Oriented X3, Cooperative, mild distress HEENT: Atraumatic, PERRLA Lungs: Clear to auscultation, Normal air movement Cardiovascular: Normal S1, Normal S2 Abdomen: Normal bowel sounds, Soft, No tenderness Musculoskeletal: Normal sensory function, Normal motor function Neuro: Normal gait, Normal speech Skin: Dry, Intact Psych/Mental Status: Mental status NL, Mood NL Medications Current Medications Medications Dose Ordered Sig/Rosalina Route Start Time Stop Time Status Last Admin Dose Admin Diagnostic Test (Pha) 1 strip ACHS 09/13/24 22:00 09/20/24 06:40 1 STRIP Insulin Human Regular HS SC 09/13/24 22:00 09/19/24 21:52 2 UNITS Insulin Human Regular AC SC 09/14/24 07:00 09/20/24 06:40 2 UNITS Dextrose 50 ml UD PRN IV 09/13/24 18:45 Morphine Sulfate 1 mg Q4HPRN PRN IV 09/13/24 18:45 Acetaminophen/ Hydrocodone Bitart 1 tab Q6HPRN PRN PO 09/13/24 18:45 09/13/24 20:44 1 TAB Acetaminophen 500 mg Q8HP PRN PO 09/13/24 18:45 09/14/24 13:17 500 MG Ondansetron HCl 4 mg Q6HP PRN IV 09/13/24 18:45 Albuterol 2.5 mg Q4HPRN PRN NEB 09/13/24 18:45 Cancel Ipratropium [place] 0.5 mg Q4HPRN PRN NEB 09/13/24 18:45 Cancel Ertapenem 1 gm/ Sodium Chloride 50 ml @ 100 mls/hr DAILY@2200 IV 09/16/24 22:00 09/19/24 21:48 100 MLS/HR Metformin HCl 500 mg BIDWM PO 09/17/24 18:00 09/20/24 09:28 500 MG Throat Lozenges 1 marisol Q2HP PRN MT 09/17/24 18:15 Insulin Glargine 15 units HS SC 09/19/24 22:00 09/19/24 21:53 15 UNITS Laboratory Results Laboratory Tests 09/16/24 06:55 09/20/24 05:34 Urinalysis Test 09/13/24 04:29 Urine Color Dark yellow (Yellow) Urine Clarity Ex.turbid (Clear) Urine pH 5.5 (5.0-9.0) Urine Specific [place] 1.020 (1.001-1.035) Urine Protein 1+ (Negative) H Urine Ketones Trace (Negative) Urine Blood Trace /uL (Negative) H Urine Nitrite 1+ (Negative) H Urine Bilirubin Negative (Negative) Urine Urobilinogen Normal mg/dL (Negative) Urine Leukocyte Esterase 3+ /uL (Negative) Urine RBC 5 /hpf (0 - 3) Urine WBC 1158 /hpf (0 - 3) Urine WBC Clumps Present /hpf (None Seen) Urine Squamous Epithelial Cells None seen /hpf (<5) Urine Bacteria Few /hpf (None Seen) H Urine Mucus Few (None Seen) Urine Glucose 4+ mg/dL (Normal) H Microbiology Microbiology Date/Time Source Procedure Growth Status 09/16/24 13:38 Blood Blood Culture - Preliminary NO GROWTH AFTER 72 HOURS OF INCUBATION. Resulted 09/13/24 04:29 Voided Urine Urine Culture - Final Escherichia coli - ESBL Complete Labs and/or images reviewed: Labs reviewed by me, Image(s) reviewed by me Assessment/Plan Assessment/Plan Impression: -sepsis -complicated cystitis -diabetes mellitus -obesity -rule out influenza, COVID-19 -rule out cholelithiasis/cholecystitis Plan: Events: Clinically stable. Discharge once home IV antibiotics has been established. No change in assessment/plan on 09/20/2024. If IV antibiotics to be set up for tomorrow, patient can be discharged home today. -IV antibiotic therapy: Continue Invanz -continue Lantus, regular insulin sliding scale, metformin -diabetic education, dietary consultation -social service consultation for discharge planning with IV antibiotic therapy: Invanz 1 g daily. Midline placed -repeat labs in a.m. Total time spent with patient discussing and formulating plan of care: 35 minutes. This medical document was created using an electronic medical record system with [employer] dictation system. Although this document has been carefully reviewed, there may still be some phonetic and typographical errors. These areas are purely typographical due to imperfections of the software programs, and do not reflect any compromise in the patient's medical care. Plan discussed with: Patient, Other (RN) My Orders Orders - SILVER PAN NP Procedure Category Date Status Time Insulin Lantus PHA 09/19/24 In Process (Glargine) (Lantus) 22:00 Discharge DISCHARGE 09/19/24 Transmitted 12:23 Date of Service: Sep 20, 2024 Billing Provider: SILVER PAN NP Common Visit Codes: [id number] INP/OBS CARE(HIGH) SILVER PAN NP Sep 20, 2024 12:06
[2024-09-21] VITALS (7 sets, daily range): BP systolic 105–111; BP diastolic 67–88; PULSE 70–86; RESP 18–20; TEMP 98–98.7; O2SAT 96–97
--- NOTE | 2024-09-21 16:53 | DVHDS2 ---
Discharge Summary Date of Admission Sep 13, 2024 at 06:30 Date of Discharge: Sep 21, 2024 Labs/Diagnostic Data: Laboratory Results Test 09/20/24 05:34 09/19/24 10:41 09/16/24 06:55 09/14/24 05:27 White Blood Count 10.3 10^3/uL (4.4-10.8) Red Blood Count 4.06 10^6/uL (4.5-5.90) Hemoglobin 12.3 g/dL (13.5-17.5) Hematocrit 34.5 % (41.0-53.0) Mean Corpuscular Volume 85.0 fL (80.0-100.0) Mean Corpuscular Hemoglobin 30.3 pg (28.0-32.0) Mean Corpuscular Hemoglobin Concent 35.7 g/dL (32.0-36.0) Red Cell Distribution Width 12.3 % (11.8-14.3) Platelet Count 394 10^3/uL (140-450) Mean Platelet Volume 7.8 fL (6.9-10.8) Neutrophils (%) (Auto) 51.1 % (37.0-80.0) Lymphocytes (%) (Auto) 31.4 % (10.0-50.0) Monocytes (%) (Auto) 14.4 % (0.0-12.0) Eosinophils (%) (Auto) 2.6 % (0.0-7.0) Basophils (%) (Auto) 0.5 % (0.0-2.0) Neutrophils # (Auto) 5.3 10 ^3/uL (1.6-8.6) Lymphocytes # (Auto) 3.2 10 ^3/uL (0.4-5.4) Monocytes # (Auto) 1.5 10 ^3/uL (0-1.3) Eosinophils # (Auto) 0.3 10 ^3/uL (0-0.8) Basophils # (Auto) 0.1 10 ^3/uL (0-0.2) Nucleated Red Blood Cells 0.1 % POC Glucose 167 mg/dl (70-106) Sodium Level 135 mmol/L (136-145) Potassium Level 3.7 mmol/L (3.5-5.1) Chloride Level 104 mmol/L (98-107) Carbon Dioxide Level 23 mmol/L (20-31) Anion Gap 8 (5-15) Blood Urea Nitrogen 17 mg/dL (9-23) Creatinine 0.86 mg/dL (0.700-1.30) Glomerular Filtration Rate Calc 109 mL/min (>90) BUN/Creatinine Ratio 19.8 (10.0-20.0) Serum Glucose 257 mg/dL (74-106) Calcium Level 9.0 mg/dL (8.7-10.4) Total Bilirubin 1.0 mg/dL (0.2-1.0) Aspartate Amino Transferase (AST) 12 U/L (13-40) Alanine Aminotransferase (ALT) 22 U/L (7-40) Alkaline Phosphatase 90 U/L (46-116) Total Protein 7.1 g/dL (5.7-8.2) Albumin 4.0 g/dL (3.2-4.8) Test 09/14/24 00:50 09/14/24 00:00 09/13/24 04:40 09/13/24 04:29 SARS-CoV-2 Antigen (Rapid) Negative (NEGATIVE) Influenza Type A Antigen Negative (Negative) Influenza Type B Antigen Negative (Negative) Erythrocyte Sedimentation Rate 55 mm/hr (0-20) Hemoglobin A1c 10.0 % A1C (<5.7) Lactic Acid Level 1.1 mmol/L (0.4-2.0) C-Reactive Protein High Sensitivity 10.24 mg/dL (<1.0) Lipase 42 U/L (12-53) Urine Color Dark yellow (Yellow) Urine Clarity Ex.turbid (Clear) Urine pH 5.5 (5.0-9.0) Urine Specific [place] 1.020 (1.001-1.035) Urine Protein 1+ (Negative) Urine Ketones Trace (Negative) Urine Blood Trace /uL (Negative) Urine Nitrite 1+ (Negative) Urine Bilirubin Negative (Negative) Urine Urobilinogen Normal mg/dL (Negative) Urine Leukocyte Esterase 3+ /uL (Negative) Urine RBC 5 /hpf (0 - 3) Urine WBC 1158 /hpf (0 - 3) Urine WBC Clumps Present /hpf (None Seen) Urine Squamous Epithelial Cells None seen /hpf (<5) Urine Bacteria Few /hpf (None Seen) Urine Mucus Few (None Seen) Urine Glucose 4+ mg/dL (Normal) Other Laboratory Tests 09/20/24 05:34 09/16/24 06:55 Brief Hx & Hospital Course: 44-year-old gentleman admitted to the hospital from the emergency room with complicated cystitis. Found to have E coli with ESBL sensitive to ertapenem. Patient has been waiting to get home health to come to his placed to help him with the home IV antibiotic for seven more days. Social service just informed us that it is set up with [facility] Condition at Discharge: Good Final Diagnosis/Problems List Sepsis secondary to ESBL in the urine Discharge Disposition: Home Discharge Instruct/Medications Diet: Consistent carbohydrate Activity: No Restrictions, As Tolerated Follow Up/Referral: Discharge Clinic in one week Obtained PCP Medications: Invanz 1 g IV daily for seven days Accu-Cheks twice a day Metformin 500 mg p.o. twice a day 40 Discharge Statement: "Patient was advised to return to the ER or call 911 if any headaches, dizziness, shortness of breath, chest pain, abdominal pain, bleeding, fevers, or worsening of medical condition. Patient was counseled about treatment plan, medications, possible side effects, patientverbalized understanding. All questions were answered to the best of my ability. This discharge took greater then 30 minutes in planning, reviewing documentation, counseling the patient, and discussing with other team members." ASSESSMENT ASSESSMENT Assessment Sepsis secondary to ESBL in the urine Date of Service: Sep 21, 2024 Billing Provider: XAVIER PARK MD Common Visit Codes: [id number] DISCH DAY >30min XAVIER PARK MD Sep 21, 2024 16:53
== END 2024-09-21 16:48 | disposition home health service (06) | DRG 872 ==
LOC: ER 04:19 → OVERFLOW 06:30 → TELE-WESTW 09:53 → WEST WING 09-14 03:34
PROVIDERS: ADMIT Nurse Practitioner Acute Care; ATTEND Nurse Practitioner Acute Care
PROC: 05HC33Z Insertion of Infusion Device into Left Basilic Vein, Percutaneous Approach (ICD-10-PCS; principal; 2024-09-18)
PROC: B54NZZA Ultrasonography of Left Upper Extremity Veins, Guidance (ICD-10-PCS; 2024-09-18)
DX: A41.89 Other specified sepsis (principal); E87.1 Hypo-osmolality and hyponatremia; N17.9 Acute kidney failure, unspecified; N10 Acute pyelonephritis; R73.9 Hyperglycemia, unspecified; Z20.822 Contact with and (suspected) exposure to COVID-19; N30.90 Cystitis, unspecified without hematuria; E66.9 Obesity, unspecified; N18.9 Chronic kidney disease, unspecified; Z80.0 Family history of malignant neoplasm of digestive organs; Z79.899 Other long term (current) drug therapy
CPT/HCPCS: 36415; 71045; 71260; 74176; 74177; 76705; 80048; 80053; 81001; 82962; 83036; 83605; 83690; 85025; 85652; 86141; 87040; 87077; 87086; 87186; 87426; 87804; G0378; J1335; J1815; J2185; J2543; J3490